=== PATIENT | male | born 1945 | race Caucasian/White ===

== ENCOUNTER 2019-07-26 13:43 | Outpatient (CLI) | payer MEDICARE, BC | END 2019-07-26 13:44 | disposition home or self-care (01) | LOC: RT 13:43 | PROVIDERS: ATTEND Internal Medicine Gastroenterology | DX: N18.6 End stage renal disease (principal); K58.9 Irritable bowel syndrome, unspecified | CPT/HCPCS: 93005 ==

== ENCOUNTER 2019-07-31 10:33 | Outpatient (CLI) | payer MEDICARE, BC | END 2019-07-31 10:34 | disposition critical access hospital (66) | LOC: EMS 10:33 | PROVIDERS: ATTEND Surgery | DX: R53.1 Weakness (principal); Z79.01 Long term (current) use of anticoagulants; W06.XXXA Fall from bed, initial encounter; Y92.032 Bedroom in apartment as the place of occurrence of the external cause; N19 Unspecified kidney failure; G62.9 Polyneuropathy, unspecified; R00.1 Bradycardia, unspecified | CPT/HCPCS: A0425; A0426; A0427 ==

== ENCOUNTER 2019-07-31 10:38 | Emergency (ER) | payer MEDICARE, BC ==
[2019-07-31] MEDS ORDERED: LACTATED RINGERS 1,000 ML IV STA (10:56)
[2019-07-31 11:28] LABS: BASOPHILS % (AUTO) 0.3 %; EOSINOPHILS % (AUTO) 1.3 %; HGB - HEMOGLOBIN 11.5 g/dL (14.0-18.0); LYMPHOCYTES # (AUTO) 1.2 10^3/uL (1.5-3.5); MEAN CORPUSCULAR HEMOGLOBIN 32.5 pg (27.0-31.0); MEAN CORPUSCULAR HGB CONC 32.9 g/dL (32.0-36.0); MEAN CORPUSCULAR VOLUME 98.9 fL (80.0-94.0); MEAN PLATELET VOLUME 12.2 fL (7.4-11.4); MONOCYTES # (AUTO) 0.3 10^3/uL (0.0-1.0); MONOCYTES % (AUTO) 8.9 %; NEUTROPHILS # (AUTO) 1.6 10^3/uL (1.5-6.6); NEUTROPHILS % (AUTO) 49.9 %; PLT - PLATELET COUNT 55 10^3/uL (130-450); RED BLOOD COUNT 3.54 10^6/uL (4.70-6.10); RED CELL DISTRIBUTION WIDTH 15.2 % (12.0-15.0); WHITE BLOOD COUNT 3.1 x10^3/uL (4.8-10.8)
[2019-07-31 11:32] LABS: PT - PROTHROMBIN TIME 83.1 secs (9.9-12.6)
[2019-07-31 11:41] LABS: INR 8.2 (0.8-1.2)
--- NOTE | 2019-07-31 11:55 | XRAY Report ---
Reason: chest pain Procedure Date: 07/31/2019 Accession Number: [id number] / [id number] Procedure: XR - Chest 1 View X-Ray CPT Code: 27107 Final Report FULL RESULT: EXAM: CHEST RADIOGRAPHY EXAM DATE: 07/31/2019 11:23 AM. CLINICAL HISTORY: Chest pain. COMPARISON: ABDOMEN ACUTE 08/29/2014 4:33 AM. TECHNIQUE: 1 view. FINDINGS: Lungs/Pleura: No focal opacities evident. No pleural effusion. No pneumothorax. Mediastinum: Top normal heart size. Other: None. IMPRESSION: Negative for active cardiopulmonary process. RADIA
[2019-07-31 11:57] LABS: ALBUMIN 3.4 g/dL (3.2-5.5); ALBUMIN/GLOBULIN RATIO 1.3 (1.0-2.2); ALKALINE PHOSPHATASE 39 IU/L (42-121); ALT ALANINE AMINOTRANSFERASE < 10 IU/L (10-60); AST ASPARTATE AMINOTRANSFERASE 14 IU/L (10-42); BUN - BLOOD UREA NITROGEN 48 mg/dL (6-20); CALCIUM 8.9 mg/dL (8.5-10.3); CARBON DIOXIDE - CO2 24 mmol/L (21-32); CHLORIDE 107 mmol/L (101-111); CK- CREATINE KINASE 133 IU/L (22-269); CREATININE 3.4 mg/dL (0.6-1.2); GFR - MDRD 18 (>89); GLUCOSE 79 mg/dL (70-100); LIPASE 43 U/L (22-51); MAGNESIUM 2.3 mg/dL (1.7-2.8); SODIUM 140 mmol/L (135-145)
--- NOTE | 2019-07-31 12:01 | XRAY Report ---
Reason: pain Procedure Date: 07/31/2019 Accession Number: [id number] / [id number] Procedure: XR - Knee 4 View RT CPT Code: Final Report FULL RESULT: EXAM: RIGHT KNEE RADIOGRAPHY EXAM DATE: 07/31/2019 11:26 AM. CLINICAL HISTORY: Pain. Syncopal episode with right-sided pain. COMPARISON: FEMUR 2V RT 07/31/2019 10:53 AM. TECHNIQUE: 2 views. FINDINGS: Bones and Joints: No fractures or bone lesion. A 2 component right knee medial hemiarthroplasty has been performed. There is expected alignment of components. No unexpected periprosthetic lucency or other evidence of loosening. Osseous body 9 mm medial joint space. Osseous body or bodies anterior joint space and infrapatellar fat pad calcification. Negative for suprapatellar recess joint fluid. Soft Tissues: No knee effusion. No soft tissue swelling. IMPRESSION: 1. Negative for fracture. 2. Negative for medial right knee hemiarthroplasty loosening. 3. Osseous body 9 mm medial tibiofemoral compartment lateral aspect. 4. Osseous body 5 mm anterior joint space lateral view with infrapatellar fat pad calcification. RADIA
--- NOTE | 2019-07-31 12:05 | XRAY Report ---
Reason: pain Procedure Date: 07/31/2019 Accession Number: [id number] / [id number] Procedure: XR - Femur 2V RT CPT Code: Final Report FULL RESULT: EXAM: RIGHT FEMUR RADIOGRAPHY EXAM DATE: 07/31/2019 11:29 AM. CLINICAL HISTORY: Pain. Syncopal episode with right head and right-sided injury. COMPARISON: KNEE 4 VIEW RT 07/31/2019 10:45 AM. TECHNIQUE: 2 views. FINDINGS: Bones: Osseous fragment 2.6 cm adjacent to the right ischial tuberosity. Joints: The visualized hip and knee joints are normal. No effusions. Soft Tissues: Normal. No soft tissue swelling. IMPRESSION: 1. Osseous fragment 2.6 cm adjacent to the right ischial tuberosity suggestive of hamstring avulsion. 2. Negative for right femur fracture. RADIA
[2019-07-31 12:48] LABS: BILIRUBIN,URINE NEGATIVE (NEGATIVE); GLUCOSE, URINE (UA) NEGATIVE (NEGATIVE); KETONES,URINE (UA) NEGATIVE (NEGATIVE); LEUKOCYTE ESTERASE, URINE NEGATIVE (NEGATIVE); NITRITE,URINE NEGATIVE (NEGATIVE); OCCULT BLOOD,URINE TRACE-INTA (NEGATIVE); PROTEIN,URINE NEGATIVE (NEGATIVE); UROBILINOGEN,URINE 0.2 (NORMAL) E.U./dL (NORMAL)
[2019-07-31 12:49] LABS: CLARITY,URINE CLEAR (CLEAR)
--- NOTE | 2019-07-31 13:00 | ED Physician Documentation ---
History of Present Illness - Stated complaint Stated Complaint: WEAKNESS - Chief complaint Chief Complaint: Neuro - History obtained from History obtained from: Patient, Family - History of Present Illness Timing: Today - Additonal information Additional information: This is a 73-year-old man who presents by ambulance with complaints that he has had been very weak over the past few days. His helps to provide the history that last night he got up around 3 AM and he fell to the ground he was not able to get up and he did not want a disturb his so he waited until she found him this morning around 7 AM. She was able to get him up off the floor and into bed but then she noticed that his left arm was not working properly. She thought that he might have a little light right facial droop. He thinks he may have hit his head but he did not pass out and he denies being on any blood thinner. He does report a history of stage IV renal disease but has not started dialysis and he has seen a student life vice president twice in the past month or so trying to clear get clearance for kidney transplant. He was on rate control medications for his A. fib but stopped those sometime ago. Patient himself denies any pain anywhere. The says that his weakness has gotten so progressively severe over the past 3 days that he cannot get up and use his walker he is having to get around in a wheelchair and he has fallen each night the past 3 nights. He did eat and drink last night. 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 No fever. Review of Systems Constitutional: denies: Fever Eyes: denies: Decreased vision Ears: reports: Loss of hearing (Wears hearing aids) Nose: denies: Rhinorrhea / runny nose, Congestion Throat: denies: Sore throat Cardiac: reports: Pedal edema. denies: Palpitations Respiratory: denies: Dyspnea, Cough GI: denies: Nausea, Vomiting, Diarrhea : reports: Frequency. denies: Dysuria Skin: reports: Other (There is a wound on the right anterior leg from prior previous fall.) Musculoskeletal: reports: Extremity swelling, Other (Status post right total knee replacement). denies: Joint pain Neurologic: reports: Generalized weakness, Near syncope, Head injury. denies: Numbness, Syncope, Seizure, Confused, Altered mental status, Headache, LOC Endocrine: reports: Polyuria Immunocompromised: denies: Chemotherapy PD PAST MEDICAL HISTORY - Past Medical History Cardiovascular: Hypertension, Arrhythmia Respiratory: Sleep apnea, CPAP use Neuro: Parkinson's Endocrine/Autoimmune: None GI: None : None HEENT: None Psych: Bipolar disorder Musculoskeletal: Chronic back pain Derm: None - Past Surgical History Past Surgical History: Yes Ortho: Rotator cuff repair Cardiovascular: CABG - Present Medications Home Medications: Ambulatory Orders Medication Instructions Recorded Confirmed risperiDONE [RisperDAL] 1 tab ORAL TID 03/26/15 07/31/19 Atorvastatin Calcium 20 mg PO DAILY 07/31/19 07/31/19 Carbidopa/Levodopa 2 tab ORAL TID 07/31/19 07/31/19 [Carbidopa-Levodopa 25-100 Tab] Divalproex Sodium 500 mg PO TID 07/31/19 07/31/19 Divalproex Sodium [Depakote] 1,500 mg PO DAILY 07/31/19 07/31/19 LORazepam [Ativan] 1 tab ORAL TID 07/31/19 07/31/19 Levothyroxine Sodium [Synthroid] 50 mcg PO DAILY 07/31/19 07/31/19 Tamsulosin [Flomax] 0.4 mg PO DAILY 07/31/19 07/31/19 Warfarin [Coumadin] 2.5 mg PO 1-2XD 07/31/19 07/31/19 buPROPion HCL [Bupropion HCl] 1 tab ORAL DAILY 07/31/19 07/31/19 calcitrioL [Calcitriol] 1 tab ORAL DAILY 07/31/19 07/31/19 - Allergies Allergies/Adverse Reactions: Allergies Allergy/AdvReac Type Severity Reaction Status Date / Time No Known Drug Allergies Allergy Verified 02/11/15 07:35 - Social History Does the pt smoke?: No Smoking Status: Never smoker Does the pt drink ETOH?: Yes - Immunizations Immunizations are current?: Yes PD ED PE NORMAL - Vitals Vital signs reviewed: Yes - General General: Alert and oriented X 3, No acute distress, Well developed/nourished - HEENT HEENT: Atraumatic, PERRL, EOMI, Moist mucous membranes, Pharynx benign - Neck Neck: No adenopathy, No bruit - Cardiac Cardiac: No murmur, No gallop, No rub, Strong equal pulses, Other (Bradycardic) - Respiratory Respiratory: No respiratory distress, Clear bilaterally - Abdomen Abdomen: Normal bowel sounds, Soft, Non tender, Non distended, No organomegaly - Derm Derm: Warm and dry, Other (Patient does look a little pale. There is a right he red discoloration to his lower extremities below the knees bilaterally. There is an open small laceration of less than a centimeter on the the not fresh. Well-healed scar over the right knee. There is bruising over the right patella.) - Extremities Extremities: No deformity, Other (Tender to palpate on the right patella. Ankle and hip joints appear without pain. 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 No: Alert and oriented X 3 (Oriented to person and place but did not know the day) - Psych Psych: Normal mood, Normal affect Results - Vitals Vitals: Vital Signs - 24 hr 07/31/19 07/31/19 07/31/19 10:45 10:53 12:21 Temperature 37.0 C Heart Rate 70 51 L Respiratory 16 15 Rate Blood Pressure 125/83 H 119/73 O2 Saturation 98 100 07/31/19 07/31/19 07/31/19 13:05 17:47 18:49 Temperature 36.6 C Heart Rate 65 63 56 L Respiratory 15 15 14 Rate Blood Pressure 127/78 134/73 H 137/72 H O2 Saturation 97 97 97 Oxygen O2 Source Room air - EKG (time done) 1122 Rate: Rate (enter#) (50) Rhythm: Atrial fibrillation Intervals: Wide QRS Ischemia: Non specific changes Compare to prior EKG: Old EKG unavailable - Labs Labs: Laboratory Tests 07/31/19 07/31/19 07/31/19 10:49 10:49 10:49 WBC 3.1 L RBC 3.54 L Hgb 11.5 L Hct 35.0 L MCV 98.9 H MCH 32.5 H MCHC 32.9 RDW 15.2 H Plt Count 55 L MPV 12.2 H Neut # (Auto) 1.6 Lymph # (Auto) 1.2 L [place] # (Auto) 0.3 Eos # (Auto) 0.0 Baso # (Auto) 0.0 Absolute Nucleated RBC 0.00 Nucleated RBC % 0.0 PT 83.1 H INR 8.2 H* Sodium 140 Potassium 4.3 Chloride 107 Carbon Dioxide 24 Anion Gap 9.0 BUN 48 H Creatinine 3.4 H Estimated GFR (MDRD) 18 L Glucose 79 Lactic Acid Calcium 8.9 Magnesium 2.3 Total Bilirubin 1.0 AST 14 ALT < 10 L Alkaline Phosphatase 39 L Total Creatine Kinase 133 Troponin I High Sens Total Protein 6.0 L Albumin 3.4 Globulin 2.6 Albumin/Globulin Ratio 1.3 Lipase 43 Urine Color Urine Clarity Urine pH Ur Specific [place] Urine Protein Urine Glucose (UA) Urine Ketones Urine Occult Blood Urine Nitrite Urine Bilirubin Urine Urobilinogen Ur Leukocyte Esterase Ur Microscopic Review Urine Culture Comments Last Dose Date Last Dose Time Valproic Acid [place] 07/31/19 07/31/19 07/31/19 10:49 11:36 12:34 WBC RBC Hgb Hct MCV MCH MCHC RDW Plt Count MPV Neut # (Auto) Lymph # (Auto) [place] # (Auto) Eos # (Auto) Baso # (Auto) Absolute Nucleated RBC Nucleated RBC % PT INR Sodium Potassium Chloride Carbon Dioxide Anion Gap BUN Creatinine Estimated GFR (MDRD) Glucose Lactic Acid 0.9 Calcium Magnesium Total Bilirubin AST ALT Alkaline Phosphatase Total Creatine Kinase Troponin I High Sens 15.9 Total Protein Albumin Globulin Albumin/Globulin Ratio Lipase Urine Color YELLOW Urine Clarity CLEAR Urine pH 6.0 Ur Specific [place] <=1.005 Urine Protein NEGATIVE Urine Glucose (UA) NEGATIVE Urine Ketones NEGATIVE Urine Occult Blood TRACE-INTA Urine Nitrite NEGATIVE Urine Bilirubin NEGATIVE Urine Urobilinogen 0.2 (NORMAL) Ur Leukocyte Esterase NEGATIVE Ur Microscopic Review NOT INDICATED Urine Culture Comments NOT INDICATED Last Dose Date Last Dose Time Valproic Acid [place] 07/31/19 07/31/19 17:24 17:24 WBC RBC Hgb Hct MCV MCH MCHC RDW Plt Count MPV Neut # (Auto) Lymph # (Auto) [place] # (Auto) Eos # (Auto) Baso # (Auto) Absolute Nucleated RBC Nucleated RBC % PT INR Sodium Potassium Chloride Carbon Dioxide Anion Gap BUN Creatinine Estimated GFR (MDRD) Glucose Lactic Acid Calcium Magnesium Total Bilirubin AST ALT Alkaline Phosphatase Total Creatine Kinase Troponin I High Sens Total Protein Albumin Globulin Albumin/Globulin Ratio Lipase Urine Color Urine Clarity Urine pH Ur Specific [place] Urine Protein Urine Glucose (UA) Urine Ketones Urine Occult Blood Urine Nitrite Urine Bilirubin Urine Urobilinogen Ur Leukocyte Esterase Ur Microscopic Review Urine Culture Comments Last Dose Date UNKNOWN UNKNOWN Last Dose Time UNKNOWN UNKNOWN Valproic Acid < 10.0 [place] < 0.05 - Rads (name of study) CXR Radiology: See rad report (Neg acute) CT head Radiology: See rad report (Neg hemorrhage) PD MEDICAL DECISION MAKING - ED course Complexity details: reviewed results, re-evaluated patient, d/w patient, d/w family ED course: Patient's BUN and creatinine are elevated but he has normal sodium and potassium. White blood cell counts low at 3.1 hemoglobin slightly low his platelet counts 55. His INR was 8.2. Lactic acid was normal and troponin was normal. His EKG did not have acute ischemic changes. Chest x-ray was clear and urinalysis was negative. CT of the head was negative. Had a long course here in the emergency department trying to figure out the best disposition. I originally spoke With our hospitalist who requested that I discussed with cardiology because of the bradycardia and falls with questionable syncopal episodes.He did not feel that this patient would be a candidate at this point for a pacemaker Spoke with Dr. Nunez and. Then is began discussing with the family she noted that he has a history of some sort of polyneuropathy and given the proximal muscle weakness I became more concerned that he does need evaluation by neurology which we do not have the past that he did do here at [facility] and probably needs an MRI scan. I spoke with the hospitalist at [facility] and they did agree to accept the patient in transfer. She also had access to old labs as that is lab values are essentially stable from prior. She was a little concerned that if he needed an EMG they would have to transfer him from [facility] to [facility] so I did call and speak with the neurologist, Dr Cottrell, at [facility] he did not feel that that they would be able to do an inpatient EMG anyway and that the referral to [facility] was probably appropriate at this time. When I went back into discuss with the family about the acceptance at [facility] patient was noted not to be moving the left arm again. He had this proximal weakness where he could not hold the left arm up at the shoulder or flex at the biceps but could move his hand and evs attendant my fingers. He was a still able to move the right arm. I updated them with the plan for transfer to [facility] and they are both in agreement. Of also added a Depakote level to make sure that he is not toxic on the Depakote. Will order his appropriate nightly meds. Departure - Departure Disposition: 02 Transfer Acute Care Hosp Clinical Impression: Weakness, Bradycardia Renal failure Qualifiers: Renal failure chronicity: chronic Chronic kidney disease stage: unspecified stage Qualified Code(s): N18.9 - Chronic kidney disease, unspecified Atrial fibrillation Qualifiers: Atrial fibrillation type: unspecified Qualified Code(s): I48.91 - Unspecified atrial fibrillation Condition: Fair Discharge Date/Time: 07/31/19 19:23
--- NOTE | 2019-07-31 14:50 | CT Report ---
Reason: syncope Procedure Date: 07/31/2019 Accession Number: [id number] / [id number] Procedure: CT - HEAD WO CPT Code: Final Report FULL RESULT: EXAM: CT HEAD EXAM DATE: 07/31/2019 11:48 AM. CLINICAL HISTORY: Syncope COMPARISON: None. TECHNIQUE: Multiaxial CT images were obtained from the foramen magnum to the vertex. Reformats: Sagittal and coronal. IV contrast: None. In accordance with CT protocol optimization, one or more of the following dose reduction techniques were utilized for this exam: automated exposure control, adjustment of mA and/or KV based on patient size, or use of iterative reconstructive technique. FINDINGS: Parenchyma: No intraparenchymal hemorrhage. No evidence of mass, midline shift, or CT findings of infarction. Dhillon-white differentiation is distinct. Extraaxial Spaces: There is generalized volume loss. No subdural or epidural collections identified. Ventricles: Normal in size and position. Sinuses and Orbits: Imaged paranasal sinuses, orbits, and mastoids show no significant abnormality. Bones: No evidence of fracture or calvarial defect. Other: None. IMPRESSION: No acute intracranial CT abnormality. RADIA
[2019-07-31] MEDS ORDERED: FOLIC ACID INJ 1 MG in SODIUM CHLORIDE 0.9% 1,000 ML IV STA ×2 (15:13→15:33)
[2019-07-31] MEDS ORDERED: THIAMINE INJ 100 MG in SODIUM CHLORIDE 0.9% 50 ML IV STA (15:13)
[2019-07-31] MEDS ORDERED: TAMSULOSIN 0.4 MG CAPSULE PO STA (18:38)
[2019-07-31 18:50] VITALS: BP 137/72
[2019-07-31 18:58] LABS: LITHIUM < 0.05 mmol/L; VALPROIC ACID (DEPAKOTE) < 10.0 ug/mL
[2019-07-31] MEDS ORDERED: CARBIDOPA/LEVODOPA 25 MG/100 MG TABLET PO SCH (19:00)
[2019-07-31] MEDS ORDERED: LEVOTHYROXINE 25 MCG TABLET PO SCH (19:00)
[2019-07-31] MEDS ORDERED: CARBIDOPA/LEVODOPA 25 MG/100 MG TABLET ONE (19:09)
== END 2019-07-31 19:23 | disposition short-term general hospital (02) ==
LOC: EDUNIT# → ED 10:38
DX: R53.1 Weakness (principal); R29.898 Other symptoms and signs involving the musculoskeletal system; R00.1 Bradycardia, unspecified; I48.91 Unspecified atrial fibrillation; S80.01XA Contusion of right knee, initial encounter; W18.30XA Fall on same level, unspecified, initial encounter; Z91.81 History of falling; Y92.009 Unspecified place in unspecified non-institutional (private) residence as the place of occurrence of the external cause; I12.9 Hypertensive chronic kidney disease with stage 1 through stage 4 chronic kidney disease, or unspecified chronic kidney disease; N18.4 Chronic kidney disease, stage 4 (severe); E23.2 Diabetes insipidus; G20 Parkinson's disease; Z96.651 Presence of right artificial knee joint
CPT/HCPCS: 36415; 70450; 71045; 73552; 73564; 80053; 80164; 80178; 81003; 82550; 83605; 83690; 83735; 84484; 85025; 85610; 87040; 93005; 96365; 96368; 99285; A9270; J3411; J7040; J7120; 81001; 84100; 87086

== ENCOUNTER 2019-07-31 19:25 | Outpatient (CLI) | payer MEDICARE, BC | END 2019-07-31 19:26 | disposition short-term general hospital (02) | LOC: EMS 19:25 | PROVIDERS: ATTEND Surgery | DX: N19 Unspecified kidney failure (principal); G62.9 Polyneuropathy, unspecified; R00.1 Bradycardia, unspecified ==

== ENCOUNTER 2019-08-22 08:00 | Outpatient (CLI) | payer MEDICARE, BC ==
[2019-08-22 06:17] LABS: BASOPHILS % (AUTO) 0.3 %; EOSINOPHILS # (AUTO) 0.1 10^3/uL (0.0-0.7); EOSINOPHILS % (AUTO) 0.9 %; LYMPHOCYTES # (AUTO) 0.9 10^3/uL (1.5-3.5); LYMPHOCYTES % (AUTO) 12.3 %; MEAN CORPUSCULAR HEMOGLOBIN 32.4 pg (27.0-31.0); MEAN CORPUSCULAR HGB CONC 32.3 g/dL (32.0-36.0); MEAN CORPUSCULAR VOLUME 100.6 fL (80.0-94.0); MEAN PLATELET VOLUME 10.4 fL (7.4-11.4); MONOCYTES # (AUTO) 0.4 10^3/uL (0.0-1.0); MONOCYTES % (AUTO) 5.7 %; NEUTROPHILS # (AUTO) 6.2 10^3/uL (1.5-6.6); NEUTROPHILS % (AUTO) 80.4 %; PLT - PLATELET COUNT 113 10^3/uL (130-450); RED BLOOD COUNT 3.39 10^6/uL (4.70-6.10); RED CELL DISTRIBUTION WIDTH 15.6 % (12.0-15.0); WHITE BLOOD COUNT 7.7 x10^3/uL (4.8-10.8)
[2019-08-22 06:23] LABS: CALCIUM 8.9 mg/dL (8.5-10.3); CREATININE 2.8 mg/dL (0.6-1.2)
[2019-08-22 06:31] LABS: INR 1.4 (0.8-1.2); PT - PROTHROMBIN TIME 15.6 secs (9.9-12.6)
== END 2019-08-22 23:59 | disposition home or self-care (01) ==
LOC: LAB.R 08:00
DX: N18.4 Chronic kidney disease, stage 4 (severe) (principal); R53.1 Weakness; E23.2 Diabetes insipidus; D69.6 Thrombocytopenia, unspecified
CPT/HCPCS: 80048; 85025; 85610

== ENCOUNTER 2019-08-22 14:29 | Outpatient (CLI) | payer MEDICARE, BC | END 2019-08-22 14:30 | disposition critical access hospital (66) | LOC: EMS 14:29 | PROVIDERS: ATTEND Surgery | DX: R47.9 Unspecified speech disturbances (principal); R53.1 Weakness | CPT/HCPCS: A0425; A0429 ==

== ENCOUNTER 2019-08-22 14:32 | Inpatient (IN) | payer MEDICARE, BC ==
[2019-08-22] MEDS ORDERED: SODIUM CHLORIDE 0.9% 1,000 ML IV ONE ×2 (14:48)
--- NOTE | 2019-08-22 15:10 | ED Physician Documentation ---
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 They state that this morning at approximately 11 AM they found him to have garbled speech and a left-sided facial droop. He apparently was last seen normal at approximately 7:30 in the morning. He is on warfarin. The nursing notes also indicate that he felt cold at that time. They did not call an ambulance at that time as the nursing notes state that his vital signs were stable so there was nothing that the ER could do for this. Nothing makes it better or worse. He states that he feels tired. Review of Systems Ten Systems: 10 systems reviewed and negative Constitutional: reports: Fever Ears: denies: Ear pain Nose: denies: Rhinorrhea / runny nose, Congestion Cardiac: denies: Chest pain / pressure Respiratory: denies: Cough GI: denies: Vomiting, Diarrhea : denies: Dysuria Skin: denies: Rash Musculoskeletal: denies: Neck pain, Back pain PD PAST MEDICAL HISTORY - Past Medical History Cardiovascular: Hypertension, Arrhythmia Respiratory: Sleep apnea, CPAP use Neuro: Parkinson's Endocrine/Autoimmune: None GI: None : None HEENT: None Psych: Bipolar disorder Musculoskeletal: Chronic back pain Derm: None - Past Surgical History Past Surgical History: Yes Ortho: Rotator cuff repair Cardiovascular: CABG - Present Medications Home Medications: Ambulatory Orders Medication Instructions Recorded Confirmed Atorvastatin Calcium 20 mg PO DAILY 07/31/19 08/22/19 Divalproex Sodium 500 mg PO TID 07/31/19 08/22/19 Levothyroxine Sodium [Synthroid] 50 mcg PO DAILY 07/31/19 08/22/19 Tamsulosin [Flomax] 0.4 mg PO DAILY 07/31/19 08/22/19 Warfarin [Coumadin] 2.5 mg PO 1-2XD 07/31/19 07/31/19 buPROPion HCL [Bupropion HCl] 75 mg PO DAILY 07/31/19 08/22/19 calcitrioL [Calcitriol] 0.25 mcg PO Q2D 07/31/19 08/22/19 Carbidopa/Levodopa 25/100 [Sinemet 1 each PO TID 08/22/19 08/22/19 25 mg/100 mg] Latanoprost 0.005% Ophth Drops 1 drops EACHEYE QPM 08/22/19 08/22/19 [Xalatan Ophth Drops] amLODIPine [Norvasc] 5 mg PO DAILY 08/22/19 08/22/19 - Allergies Allergies/Adverse Reactions: Allergies Allergy/AdvReac Type Severity Reaction Status Date / Time No Known Drug Allergies Allergy Verified 08/22/19 15:00 - Social History Does the pt smoke?: No Smoking Status: Never smoker Does the pt drink ETOH?: Yes - Immunizations Immunizations are current?: Yes PD ED PE NORMAL - Vitals Vital signs reviewed: Yes - General General: Alert and oriented X 3, No acute distress, Well developed/nourished, Other (mild tremor) - HEENT HEENT: PERRL, Moist mucous membranes - Neck Neck: Supple, no meningeal sign - Cardiac Cardiac: Other (irregular) - Respiratory Respiratory: No respiratory distress, Clear bilaterally - Abdomen Abdomen: Soft, Non tender, Non distended - Derm Derm: Warm and dry, No rash - Extremities Extremities: No edema - Neuro 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, 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, No sensory deficit, Normal speech, Other (mild L sided weakness from prior CVA) Eye Opening: Spontaneous Motor: Obeys Commands Verbal: Oriented GCS Score: 15 - Psych Psych: Normal mood, Normal affect Results - Vitals Vitals: Vital Signs - 24 hr 08/22/19 08/22/19 08/22/19 14:45 15:20 15:46 Temperature 38.5 C H 38.3 C H Heart Rate 126 H 83 80 Respiratory 23 22 22 Rate Blood Pressure 108/73 114/105 H O2 Saturation 98 98 100 Oxygen O2 Source Room air - EKG (time done) 1453 Rate: Rate (enter#) (71) Rhythm: Atrial fibrillation, Other (PVCs) [place]: Normal Intervals: Wide QRS QRS: Normal Ischemia: Non specific changes - Labs Labs: Laboratory Tests 08/22/19 08/22/19 08/22/19 15:40 15:40 15:40 WBC 10.3 RBC 3.10 L Hgb 10.1 L Hct 31.4 L MCV 101.3 H MCH 32.6 H MCHC 32.2 RDW 15.5 H Plt Count 96 L MPV 9.9 Neut # (Auto) 8.9 H Lymph # (Auto) 0.6 L [place] # (Auto) 0.7 Eos # (Auto) 0.0 Baso # (Auto) 0.0 Absolute Nucleated RBC 0.00 Nucleated RBC % 0.0 PT INR Sodium 136 Potassium 4.2 Chloride 103 Carbon Dioxide 24 Anion Gap 9.0 BUN 50 H Creatinine 2.9 H Estimated GFR (MDRD) 21 L Glucose 81 Lactic Acid 1.0 Calcium 8.7 Total Bilirubin 1.0 AST 11 ALT < 10 L Alkaline Phosphatase 45 Total Protein 6.1 L Albumin 2.8 L Globulin 3.3 Albumin/Globulin Ratio 0.8 L Lipase 38 Urine Color Urine Clarity Urine pH Ur Specific [place] Urine Protein Urine Glucose (UA) Urine Ketones Urine Occult Blood Urine Nitrite Urine Bilirubin Urine Urobilinogen Ur Leukocyte Esterase Urine RBC Urine WBC Urine WBC Clumps Ur Squamous Epith Cells Urine Bacteria Ur Microscopic Review Urine Culture Comments 08/22/19 08/22/19 15:40 16:00 WBC RBC Hgb Hct MCV MCH MCHC RDW Plt Count MPV Neut # (Auto) Lymph # (Auto) [place] # (Auto) Eos # (Auto) Baso # (Auto) Absolute Nucleated RBC Nucleated RBC % PT 16.2 H INR 1.5 H Sodium Potassium Chloride Carbon Dioxide Anion Gap BUN Creatinine Estimated GFR (MDRD) Glucose Lactic Acid Calcium Total Bilirubin AST ALT Alkaline Phosphatase Total Protein Albumin Globulin Albumin/Globulin Ratio Lipase Urine Color YELLOW Urine Clarity HAZY Urine pH 6.5 Ur Specific [place] <=1.005 Urine Protein NEGATIVE Urine Glucose (UA) NEGATIVE Urine Ketones NEGATIVE Urine Occult Blood SMALL H Urine Nitrite NEGATIVE Urine Bilirubin NEGATIVE Urine Urobilinogen 0.2 (NORMAL) Ur Leukocyte Esterase MODERATE H Urine RBC 0-5 Urine WBC >25 H Urine WBC Clumps PRESENT Ur Squamous Epith Cells RARE Squamous Urine Bacteria Rare Ur Microscopic Review INDICATED Urine Culture Comments INDICATED - Rads (name of study) head CT Radiology: Prelim report reviewed, EMP read contemporaneously, See rad report (N o acute disease or interval change. ) cxr Radiology: Prelim report reviewed, EMP read contemporaneously, See rad report (Negative for an acute cardiopulmonary abnormality. ) PD MEDICAL DECISION MAKING - ED course Complexity details: reviewed results, re-evaluated patient, considered differential, d/w patient, d/w family, d/w strategic planning consultant ED course: Patient with what sounds like confusion at [facility] today. Likely related to his fever and UTI rather than an acute stroke. Blood cultures drawn. IV fluids given. Heart rate decreased. Will place on IV antibiotics. Discussed the case with the hospitalist who accepts. This document was made in part using voice recognition software. While efforts are made to proofread this document, sound alike and grammatical errors may occur. Departure - Departure Disposition: 66 [facility] DC/Xfer Clinical Impression: TIA (transient ischemic attack) Fever Qualifiers: Fever type: unspecified Qualified Code(s): R50.9 - Fever, unspecified Altered mental status Qualifiers: Altered mental status type: unspecified Qualified Code(s): R41.82 - Altered mental status, unspecified UTI (urinary tract infection) Qualifiers: Urinary tract infection type: acute cystitis Hematuria presence: without hematuria Qualified Code(s): N30.00 - Acute cystitis without hematuria Condition: Stable Discharge Date/Time: 08/22/19 18:17
--- NOTE | 2019-08-22 15:24 | CT Report ---
Reason: ALOC Procedure Date: 08/22/2019 Accession Number: [id number] / [id number] Procedure: CT - HEAD WO CPT Code: Final Report FULL RESULT: EXAM: CT HEAD EXAM DATE: 08/22/2019 02:51 PM. CLINICAL HISTORY: Altered level of consciousness. COMPARISON: HEAD W/O 07/31/2019 11:47 AM. TECHNIQUE: Multiaxial CT images were obtained from the foramen magnum to the vertex. Reformats: Sagittal and coronal. IV contrast: None. In accordance with CT protocol optimization, one or more of the following dose reduction techniques were utilized for this exam: automated exposure control, adjustment of mA and/or KV based on patient size, or use of iterative reconstructive technique. FINDINGS: Parenchyma: No intraparenchymal hemorrhage. No evidence of mass, midline shift, or CT findings of infarction. Dhillon-white differentiation is distinct. Moderate cerebral atrophy present. Mild periventricular white matter disease unchanged. Extraaxial Spaces: Normal for age. No subdural or epidural collections identified. Ventricles: Normal in size and position. Sinuses and Orbits: No sinus opacities or fluid levels evident. Bones: No evidence of fracture or calvarial defect. Other: None. IMPRESSION: No acute disease or interval change. RADIA
[2019-08-22 15:45] LABS: BASOPHILS % (AUTO) 0.2 %; EOSINOPHILS % (AUTO) 0.1 %; HGB - HEMOGLOBIN 10.1 g/dL (14.0-18.0); LYMPHOCYTES # (AUTO) 0.6 10^3/uL (1.5-3.5); LYMPHOCYTES % (AUTO) 6.1 %; MEAN CORPUSCULAR HEMOGLOBIN 32.6 pg (27.0-31.0); MEAN CORPUSCULAR HGB CONC 32.2 g/dL (32.0-36.0); MEAN CORPUSCULAR VOLUME 101.3 fL (80.0-94.0); MEAN PLATELET VOLUME 9.9 fL (7.4-11.4); MONOCYTES # (AUTO) 0.7 10^3/uL (0.0-1.0); MONOCYTES % (AUTO) 6.5 %; NEUTROPHILS # (AUTO) 8.9 10^3/uL (1.5-6.6); NEUTROPHILS % (AUTO) 86.3 %; PLT - PLATELET COUNT 96 10^3/uL (130-450); RED CELL DISTRIBUTION WIDTH 15.5 % (12.0-15.0); WHITE BLOOD COUNT 10.3 x10^3/uL (4.8-10.8)
--- NOTE | 2019-08-22 15:45 | XRAY Report ---
Reason: fever Procedure Date: 08/22/2019 Accession Number: [id number] / [id number] Procedure: XR - Chest 1 View X-Ray CPT Code: 45647 Final Report FULL RESULT: EXAM: CHEST RADIOGRAPHY EXAM DATE: 08/22/2019 03:28 PM. CLINICAL HISTORY: Fever. COMPARISON: CHEST 1 VIEW 07/31/2019 10:43 AM. TECHNIQUE: 1 view. FINDINGS: Lungs/Pleura: No focal pneumonia or airspace disease. Lung volumes are stable. Negative for pneumothorax. Mediastinum: Heart size is normal. The trachea is midline. Other: None. IMPRESSION: Negative for an acute cardiopulmonary abnormality. RADIA
[2019-08-22 15:59] LABS: INR 1.5 (0.8-1.2); PT - PROTHROMBIN TIME 16.2 secs (9.9-12.6)
[2019-08-22 16:01] LABS: ALBUMIN 2.8 g/dL (3.2-5.5); ALBUMIN/GLOBULIN RATIO 0.8 (1.0-2.2); ALKALINE PHOSPHATASE 45 IU/L (42-121); ALT ALANINE AMINOTRANSFERASE < 10 IU/L (10-60); AST ASPARTATE AMINOTRANSFERASE 11 IU/L (10-42); BUN - BLOOD UREA NITROGEN 50 mg/dL (6-20); CALCIUM 8.7 mg/dL (8.5-10.3); CARBON DIOXIDE - CO2 24 mmol/L (21-32); CHLORIDE 103 mmol/L (101-111); CREATININE 2.9 mg/dL (0.6-1.2); GFR - MDRD 21 (>89); GLUCOSE 81 mg/dL (70-100); LIPASE 38 U/L (22-51); SODIUM 136 mmol/L (135-145); TOTAL PROTEIN 6.1 g/dL (6.7-8.2)
[2019-08-22 16:17] LABS: BILIRUBIN,URINE NEGATIVE (NEGATIVE); GLUCOSE, URINE (UA) NEGATIVE (NEGATIVE); KETONES,URINE (UA) NEGATIVE (NEGATIVE); LEUKOCYTE ESTERASE, URINE MODERATE (NEGATIVE); NITRITE,URINE NEGATIVE (NEGATIVE); OCCULT BLOOD,URINE SMALL (NEGATIVE); PH,URINE 6.5 PH (5.0-7.5); PROTEIN,URINE NEGATIVE (NEGATIVE); UROBILINOGEN,URINE 0.2 (NORMAL) E.U./dL (NORMAL)
[2019-08-22 16:18] LABS: CLARITY,URINE HAZY (CLEAR)
[2019-08-22] MEDS ORDERED: cefTRIAXone 1 GM VIAL IVP STA (16:30)
[2019-08-22 16:38] LABS: BACTERIA,URINE Rare /HPF (None Seen); RBC,URINE 0-5 /HPF (0-5); SQUAMOUS EPITHELIAL CELL,UR RARE Squamous (<= Few); WBC CLUMPS,URINE PRESENT
[2019-08-22] MEDS ORDERED: ACETAMINOPHEN 325 MG TABLET PO PRN (17:08)
[2019-08-22] MEDS ORDERED: ONDANSETRON 4 MG/2 ML VIAL IVP PRN (17:08)
[2019-08-22] MEDS ORDERED: SODIUM CHLORIDE FLUSH 0.9% 10 ML SYRINGE IVP PRN (17:08)
--- NOTE | 2019-08-22 17:51 | HISTORY & PHYSICAL EXAMINATION ---
Chief Complaint - Chief Complaint Chief Complaint: left side weakness History of Present Illness - Admitted From Admitted From:: ER - History Obtained From History obtained from: pt's Exam Limitations: pt's confused - History of Present Illness HPI Comment/Other: Mr. Cordero is a 73-year-old male with a PMH significant for s/p recent stroke, HTN, arrhythmia, sleep apnea with CPAP use, Parkinson's, bipolar disorder, chronic back pain, hypothyroidism, CKD, afib on Coumadin, who present ER for left side weakness. pt is confused and can not provide medical history. pt's is at the bedside to provide some medical history. She report pt had both hemorrhage and clots stroke at [place] about two weeks ago then pt was d/c to [facility] for rehab. she report pt's left side weakness appear again on today morning when she saw pt. She report pt had hx of left side weakness from last stroke but became better after d/c from [place]. Per ER's report, at this morning at approximately 11 [address] [facility] found pt to have garbled speech and a left-sided facial droop. Pt took Coumadin at [facility]. Per ER report, the nursing notes in [facility] also indicate that he felt cold at that time, and [facility] did not call an ambulance at that time because the nursing notes state that pt's vital signs were stable, so there was nothing that the ER could do for this. In ER pt was found to have fever at 39.5, UA analysis indicate UTI. CXR and CT of head on today reveals unremarkable. Route lab test shows pt's creatinine is 2.9, INR is 1.5 Discussed with pt's about the care plan and goal of care. pt's recognized pt has severe medical conditions which could become more worsening. she state if any happens, [facility] call her DIOR. she state pt's code status is DNR/DNI. History - Past Medical History Cardiovascular: reports: Hypertension, Arrhythmia Respiratory: reports: Sleep apnea, CPAP use Neuro: reports: Parkinson's Endocrine/Autoimmune: reports: None GI: reports: None : reports: None HEENT: reports: None Psych: reports: Bipolar disorder Musculoskeletal: reports: Chronic back pain Derm: reports: None MRSA Hx?: No - Past Surgical History Ortho: reports: Rotator cuff repair Cardiovascular: reports: CABG - Family & Social History Family History: Mother: CVA/TIA, Father: Cancer Family History Comment/Other: pt's report pt's father from lung cancer at age of 90, her mother from stroke. pt has 10 sibles, all are health now. Living arrangement: At home Living Situation: With spouse/s.o. Social History Notes: pt's report pt had no hx of smoking, alcohol and drug isssue. They has three children together. They is living [facility]. - POLST POLST Status: DNR Meds/Allgy - Home Medications Home Medications: Ambulatory Orders Medication Instructions Recorded Confirmed Atorvastatin Calcium 20 mg PO DAILY 07/31/19 08/22/19 Divalproex Sodium 500 mg PO TID 07/31/19 08/22/19 Levothyroxine Sodium [Synthroid] 50 mcg PO DAILY 07/31/19 08/22/19 Tamsulosin [Flomax] 0.4 mg PO DAILY 07/31/19 08/22/19 Warfarin [Coumadin] 2.5 mg PO 1-2XD 07/31/19 07/31/19 buPROPion HCL [Bupropion HCl] 75 mg PO DAILY 07/31/19 08/22/19 calcitrioL [Calcitriol] 0.25 mcg PO Q2D 07/31/19 08/22/19 Carbidopa/Levodopa 25/100 [Sinemet 1 each PO TID 08/22/19 08/22/19 25 mg/100 mg] Latanoprost 0.005% Ophth Drops 1 drops EACHEYE QPM 08/22/19 08/22/19 [Xalatan Ophth Drops] amLODIPine [Norvasc] 5 mg PO DAILY 08/22/19 08/22/19 - Allergies Allergies/Adverse Reactions: Allergies Allergy/AdvReac Type Severity Reaction Status Date / Time No Known Drug Allergies Allergy Verified 08/22/19 15:00 Review of Systems - Constitutional Constitutional: reports: Fever, Chills - Eyes Eyes: denies: Pain, Spots in vision, Field loss - Ears, Nose & Throat Ears, Nose & Throat: denies: Ear pain, Nosebleeds, Sore throat, Hoarseness - Cardiovascular Cariovascular: denies: Irregular heart rate, Palpitations, Chest pain, Edema, Lightheadedness, Syncope, Exertional dyspnea, Decr. exercise tolerance - Respiratory Respiratory: denies: Cough, Sputum production, Wheezing, Snoring, Hemoptysis, Orthopnea, SOB at rest, SOB with exertion - Gastrointestinal Gastrointestinal: denies: Abdominal pain, Abdominal distention, Constipation, Diarrhea, Rectal bleeding, Black stools, Bloody stools, Nausea, Vomiting, Coffee grounds emesis - Genitourinary Genitourinary: denies: Dysuria, Frequency, Urgency, Hematuria - Musculoskeletal Musculoskeletal: denies: Muscle pain, Muscle aches, Joint swelling - Integumentary Integumentary: denies: Rash, Pruritis, Dryness - Neurological Neurological: reports: Focal weakness, Pre-existing deficit, Abnormal gait, Incoordination. denies: Headache, Dizziness, Numbness, Seizures, Slurred speech - Psychiatric Psychiatric: denies: Depression, Suicidal, Delusions, Hallucinations, Homicidal - Endocrine Endocrine: denies: Polyuria - Hematologic/Lymphatic Hematologic/Lymphatic: denies: Anemia, Blood clots - All Other Systems All Other Systems: reports: Other (pt's provide above informations) Exam - Vital Signs Vital Signs: Vital Signs x48h Temp Pulse Resp BP Pulse Ox 08/22/19 17:11 39.5 C H 87 22 103/68 98 08/22/19 15:46 38.3 C H 80 22 114/105 H 100 08/22/19 15:20 83 22 98 08/22/19 14:45 38.5 C H 126 H 23 108/73 98 - Physical Exam General Appearance: positive: No acute distress, Alert. negative: Lethargic Eyes Bilateral: positive: Normal inspection, PERRL, No lid inflammation ENT: positive: ENT inspection nml, Pharynx nml, No signs of dehydration. negative: Purulent nasal drainage Neck: positive: Nml inspection, Thyroid nml, No JVD, Trachea midline. negative: Thyromegaly, Lymphadenopathy (R), Lymphadenopathy (L), Stiff neck, Tracheal deviation Respiratory: positive: Chest non-tender, No respiratory distress, Breath sounds nml. negative: Wheezes, Rales, Rhonchi Cardiovascular: positive: Regular rate & rhythm, No murmur, No gallop. negative: Irregularly irregular, Extrasystoles, Tachycardia, Bradycardia, JVD present, Systolic murmur, Diastolic murmur Peripheral Pulses: positive: 2+ Abdomen: positive: Non-tender, No organomegaly, Nml bowel sounds, No distention. negative: Tenderness, Guarding, Rebound Back: positive: Nml inspection. negative: CVA tenderness (R), CVA tenderness (L) Skin: positive: Color nml, No rash, Warm, Dry. negative: Cyanosis, Diaphoresis, Pallor Extremities: positive: Non-tender. negative: Calf tenderness, Latrice's sign/cords Neurologic/Psychiatric: positive: Disoriented to person, Disoriented to place, Disoriented to time, Weakness, Sensory loss. negative: Oriented x3, Motor nml, Sensation nml, Facial droop, Slurred/abnml speech Sepsis Event Note (H) - Evaluation Current Stage of Sepsis: Sepsis Possible source of Sepsis: positive: Genitourinary - Sepsis Criteria Sepsis Criteria: Recorded Temperature greater than 38.3C or Less than 36C, Recorded Heart Rate greater than 90 bpm, Renal: urine output less than 0.5ml/kg/hr for 2 hours or creatinine gr Conclusion/Plan - Problem List (1) Stroke Conclusion/Plan: pt's persistent present weakness on left upper and lower extremities. pt had stroke on two weeks ago. per pt's report pt's left side weakness became worsening on today. unfortunately the new symptoms happened on the morning. pt has hx of both hemorrhage and clots stroke at [place]. pt has hx of afib on Coumadin but the dosage of Coumadin is not conformed yet. INR is 1.[address] of head is unremarkable start Aspirin and Lipitor, and lipid panel. order MRI, ECHO, US of Carotid order PT/OT/ST. pt's report pt has no dysphagia before hold BP meds and let his BP rise (2) Altered mental status Conclusion/Plan: pt is confused. it is likely from his stroke and infection from his UTI treat with antibiotics for his infection, and stroke neuro check for pt Qualifiers: Altered mental status type: unspecified Qualified Code(s): R41.82 - Altered mental status, unspecified (3) Sepsis Conclusion/Plan: pt has 39.5 degree fever, AMS, UTI, and BP is ruing slight lower today now treat infection with Cefepime and Vancomycin for his high fever, and sepsis IVF of NS tele and vital monitor closely blood cultur is pending now (4) UTI (urinary tract infection) Conclusion/Plan: UA analysis indicate UTI, UA culture is pending now treat with antibiotics, IVF of NS followup UA culture Qualifiers: Urinary tract infection type: acute cystitis Hematuria presence: without hematuria Qualified Code(s): N30.00 - Acute cystitis without hematuria (5) Atrial fibrillation Conclusion/Plan: pt has hx of afib, he is on Coumadin. now his HR is stable, will resume his Coumadin after confirmed by Pharmacy on tele and carlos a check PT/INR daily Qualifiers: Atrial fibrillation type: unspecified Qualified Code(s): I48.91 - Unspec ified atrial fibrillation (6) Hypertension Conclusion/Plan: pt's bp is slight lower now, hold home BP meds, vital closely monitor pt (7) CKD (chronic kidney disease) stage 4, GFR 15-29 ml/min Conclusion/Plan: pt has hx of stage 4 CKD, will hydration and avoid nephrological toxical agents (8) Parkinson disease Conclusion/Plan: stable, resume home meds (9) Hypothyroidism Conclusion/Plan: check TSH, resume home Levothyrosine (10) Bipolar disorder Conclusion/Plan: stable now , will resume home divalproex, and check serum depakote - Lab Results Fish Bones: 08/22/19 15:40 08/22/19 15:40 Core Measures - Anticipated LOS I expect patient to be DC'd or transferred within 96 hours.: Yes - Stroke - Rehab Assessment Rehab services assessment to be ordered?: Yes - AMI - Statin at Admit Aspirin Prescribed on Admit: Yes
[2019-08-22] MEDS ORDERED: SODIUM CHLORIDE 0.9% 1,000 ML IV SCH (18:00)
[2019-08-22] MEDS ORDERED: PIPERACILLIN/TAZOBACTAM 2.25 GM in SODIUM CHLORIDE 0.9% MINIBAG 100 ML IV SCH (18:00)
[2019-08-22] MEDS ORDERED: VANCOMYCIN INJ 2 GM in SODIUM CHLORIDE 0.9% 500 ML IV ONE (20:00)
[2019-08-22] MEDS: SODIUM CHLORIDE 0.9% 1,000 ML IV SCH (20:47)
[2019-08-22] MEDS: CEFEPIME 2 GM in SODIUM CHLORIDE 0.9% MINIBAG 100 ML IV SCH (20:47)
--- NOTE | 2019-08-22 20:53 | MRI Report ---
Reason: stroke Procedure Date: 08/22/2019 Accession Number: [id number] / [id number] Procedure: MRI - Brain W/O CPT Code: Addended Final Report FULL RESULT: EXAM: MRI BRAIN WITHOUT CONTRAST EXAM DATE: 08/22/2019 08:21 PM. CLINICAL HISTORY: Stroke. Garbled speech. Left-sided facial droop. COMPARISON: HEAD W/O 08/22/2019 3:05 PM. HEAD W/O 07/31/2019 11:47 AM. TECHNIQUE: Multiplanar, multisequence T1-weighted and fluid-sensitive MR sequences of the brain were performed. Sequences optimized for routine evaluation. Other: None. IV Contrast: None. FINDINGS: (Study is somewhat limited by motion artifact.) Brain Volume: Mild age advanced volume loss is present. Parenchyma/Dura: There is an 11 mm focus of signal abnormality with restricted diffusion, decreased T1, and increased T2/FLAIR signal is noted in the right real radiata lateral to the body of the lateral ventricle. This is in the posterior frontal region. No associated hemorrhage. Age-related atrophy is seen. Mild confluent periventricular with patchy deep white matter T2/FLAIR bright signal seen throughout the cerebral hemispheres. No cortical signal abnormality. No intracranial mass or hemorrhage is noted. Ventricles/Cisterns: Prominence to the ventricular system and overlying cortical sulci is noted. No hydrocephalus.No abnormal extra-axial fluid collection or hemorrhage. Orbits: Symmetric and unremarkable. Sella Turcica: The pituitary gland, cavernous sinuses, suprasellar cistern and optic chiasm are unremarkable. IAC: Symmetric and unremarkable. Vasculature: Normal signal flow void is seen in the major arterial structures at the skull base. Sinuses: No acute appearing sinus disease. Bones: No focal pathologic appearing marrow signal changes. Other: None. IMPRESSION: 1. There is an 11 mm acute infarct in the right posterior frontal real radiata. No associated hemorrhage. 2. Moderate diffuse atrophy. Consequent prominence to the ventricular system and overlying cortical sulci is noted. 3. Mild white matter signal abnormality is seen in the cerebral hemispheres. This is nonspecific. This can be seen secondary to small vessel ischemic change. RADIA The call report notification system was initiated by Dr. Vinay Hunter at 08:49 PM on 08/22/2019. ADDENDUM: 08/22/19 21:33 The above call report findings were discussed with Treating Hospitalist Physician by Dr. Vinay Hunter at 09:33 PM on 08/22/2019.
[2019-08-22] MEDS ORDERED: ATORVASTATIN 40 MG TABLET PO SCH (21:00)
[2019-08-22] MEDS ORDERED: HEPARIN 5,000 UNIT/ML VIAL SUBQ SCH (21:00)
[2019-08-22] MEDS: CARBIDOPA/LEVODOPA 25 MG/100 MG TABLET PO SCH (21:20)
[2019-08-22] MEDS: DIVALPROEX DR 250 MG TABLET PO SCH (21:20)
[2019-08-22] MEDS: LATANOPROST 0.005% OPHTH DROPS EACHEYE SCH (21:21)
--- NOTE | 2019-08-22 22:01 | PROVIDER PROGRESS NOTE ---
Interactive Art Director Note - Interactive Art Director Note Interactive Art Director Note: I was notified by radiology around 9:30pm on 08/22/19 that patient has an 11mm acute infarct in the right posterior frontal real radiata. There was no associated hemorrhage. I updated the patient's who is at bedside. She states the patient's mentation has been different for the past couple of days. She also add that since his previous CVA approximately 3 weeks ago his physical ability has decreased significantly. She asked if the patient could go back to inpatient rehab at [facility]. The patient was resting comfortably when I entered the room to talk to his . He could not hold still earlier in the night when the Carotid doppler was attempted so I asked for it to be deferred to the next day.
[2019-08-22] MEDS: SODIUM CHLORIDE FLUSH 0.9% 10 ML SYRINGE IVP SCH (23:53)
[2019-08-23] MEDS: SODIUM CHLORIDE 0.9% 1,000 ML IV SCH ×3 (04:15→21:18)
[2019-08-23 05:11] LABS: BASOPHILS % (AUTO) 0.3 %; EOSINOPHILS # (AUTO) 0.2 10^3/uL (0.0-0.7); EOSINOPHILS % (AUTO) 1.7 %; HGB - HEMOGLOBIN 9.3 g/dL (14.0-18.0); LYMPHOCYTES # (AUTO) 0.8 10^3/uL (1.5-3.5); LYMPHOCYTES % (AUTO) 7.2 %; MEAN CORPUSCULAR HEMOGLOBIN 33.3 pg (27.0-31.0); MEAN CORPUSCULAR HGB CONC 32.3 g/dL (32.0-36.0); MEAN CORPUSCULAR VOLUME 103.2 fL (80.0-94.0); MEAN PLATELET VOLUME 11.4 fL (7.4-11.4); MONOCYTES # (AUTO) 0.6 10^3/uL (0.0-1.0); NEUTROPHILS # (AUTO) 8.9 10^3/uL (1.5-6.6); NEUTROPHILS % (AUTO) 83.2 %; RED BLOOD COUNT 2.79 10^6/uL (4.70-6.10); RED CELL DISTRIBUTION WIDTH 15.5 % (12.0-15.0); WHITE BLOOD COUNT 10.7 x10^3/uL (4.8-10.8)
[2019-08-23 05:13] LABS: CALCIUM 8.7 mg/dL (8.5-10.3); CREATININE 2.9 mg/dL (0.6-1.2)
[2019-08-23 05:20] LABS: PLT - PLATELET COUNT 86 10^3/uL (130-450)
[2019-08-23 05:25] LABS: CHOL/HDL RATIO 2.3 (<5.0); CHOLESTEROL 84 mg/dL; HDL CHOLESTEROL 36 mg/dL
[2019-08-23 05:26] LABS: INR 1.4 (0.8-1.2); PT - PROTHROMBIN TIME 15.9 secs (9.9-12.6)
[2019-08-23] MEDS: CEFEPIME 2 GM in SODIUM CHLORIDE 0.9% MINIBAG 100 ML IV SCH (06:16)
[2019-08-23] MEDS: PANTOPRAZOLE 40 MG TABLET PO SCH (06:19)
[2019-08-23] MEDS: LEVOTHYROXINE 25 MCG TABLET PO SCH (06:19)
[2019-08-23] MEDS: CARBIDOPA/LEVODOPA 25 MG/100 MG TABLET PO SCH ×3 (06:19→21:10)
[2019-08-23] MEDS: DIVALPROEX DR 250 MG TABLET PO SCH ×3 (06:19→21:10)
[2019-08-23] MEDS: BUPROPION HCL 75 MG PO SCH (08:24)
[2019-08-23] MEDS: SODIUM CHLORIDE FLUSH 0.9% 10 ML SYRINGE IVP SCH ×2 (08:24→18:45)
[2019-08-23] MEDS: ASPIRIN CHEW 81 MG TABLET PO SCH (08:24)
[2019-08-23] MEDS ORDERED: cefTRIAXone 1 GM in SODIUM CHLORIDE 0.9% MINIBAG 100 ML IV SCH (09:00)
[2019-08-23] MEDS ORDERED: SODIUM CHLORIDE 0.9% 1,000 ML IV SCH ×2 (09:27→15:47)
[2019-08-23 09:40] LABS: VALPROIC ACID (DEPAKOTE) 67.4 ug/mL
--- NOTE | 2019-08-23 11:13 | ADVANCE CARE PLANNING NOTE ---
Advance Care Planning - Planning Encounter Date: 08/23/19 Time: 11:04 Purpose: advanced care plan for pt Parties in Attendance: pt's and me Decisional Capacity of the Patient: pt has very limited capacity to make his medical decision, based on pt's multiple times of stroke, and underline of dementia. - Diagnosis for Encounter (2) Altered mental status Qualifiers: Altered mental status type: unspecified Qualified Code(s): R41.82 - Altered mental status, unspecified (4) UTI (urinary tract infection) Qualifiers: Urinary tract infection type: acute cystitis Hematuria presence: without hematuria Qualified Code(s): N30.00 - Acute cystitis without hematuria (5) Atrial fibrillation Qualifiers: Atrial fibrillation type: unspecified Qualified Code(s): I48.91 - Unspecified atrial fibrillation - Encounter Subjective/Patient's Story: pt's and me sit down to discuss pt's care plan. Per pt's report pt had stroke recently in [place] which significantly affect his capacity to walk, talk, and cognitive. His quality life is significantly declined since that. Also pt has stage 4 kidney failure, pt always feel tired and fatigue per his report. pt's quality life is significantly affected as well. Now pt has another new stroke, MRI of his brain confirm pt has right brain stroke at 11mm size, and pt has more weakness on left of his body, his speech is mild affected as well. His ambulation and balance has significantly affected by this new stroke. pt also has Parkinson disease which has already significantly affect his quality of life. At this point, pt's would like to choose DNR/DNI for his code status and focus on comfort measure. The new PLOST is signed by her, and will be scanned to computer. Objective/Medical Story: multiple times of stroke, new stroke on yesterday, kidney failure on stage 4, afib with Coumadin, left side paralysis, HTN, hypothyroidism, bipolar disease, Parkinson disease. Goals of Care: comfortable measure, focus on quality of life Plan: keep DNR/DNI code status, comfortable measure, his will sign the new PLOST Code Status: Do Not Attempt Resuscitation Time spent on advance care plannin
[2019-08-23 11:17] LABS: HB2 TOTAL 9.1 g/dL; HEMOGLOBIN A1C 0.39 g/dL; HEMOGLOBIN A1C % 6.1 % (4.6-6.2)
--- NOTE | 2019-08-23 12:06 | PROVIDER PROGRESS NOTE ---
Assessment/Plan - Problem List (1) Stroke Assessment/Plan: 2 MRI confirm pt has right 11 mm acute infarct in the right posterior frontal real radiata, no associated hemorrhage. But pt appear no dysphagia, he use his right hand to ate his breakfast today morning. He also present relative intact speech. Pt had unremarkable Carotid US and ECHO in [place] about 2 weeks which revealed 62% EF. continue Aspirin and Lipitor, will resume home Coumadin after pharmacy confirm continue PT/OT, followup ST pt's persistent present weakness on left upper and lower extremities. pt had stroke on two weeks ago. per pt's report pt's left side weakness became worsening on today. unfortunately the new symptoms happened on the morning. pt has hx of both hemorrhage and clots stroke at [place]. pt has hx of afib on Coumadin but the dosage of Coumadin is not conformed yet. INR is 1.[address] of head is unremarkable start Aspirin and Lipitor, and lipid panel. order MRI, ECHO, US of Carotid order PT/OT/ST. pt's report pt has no dysphagia before hold BP meds and let his BP rise (2) Altered mental status Conclusion/Plan: 2 improved. pt is alert and oriented to himself and location, but not the time. continue neuro check pt is confused. it is likely from his stroke and infection from his UTI treat with antibiotics for his infection, and stroke neuro check for pt (3) Sepsis Conclusion/Plan: 2 improved. pt has no more fever, or chill. pt's mental status is becoming more improved and clear. UA analysis reveals Ecoli. continue cefepime, d/c Vancomycin. pt has stage 4 CKD. Ecoli is gram negative, cefepim is good for Ecoli pt has 39.5 degree fever, AMS, UTI, and BP is ruing slight lower today now treat infection with Cefepime and Vancomycin for his high fever, and sepsis IVF of NS tele and vital monitor closely blood culture is pending now (4) UTI (urinary tract infection) Conclusion/Plan: 2 UA analysis reveals Ecoli. continue cefepime, d/c Vancomycin. UA analysis indicate UTI, UA culture is pending now treat with antibiotics, IVF of NS followup UA culture (5) Atrial fibrillation Conclusion/Plan: 2 controlled HR, will continue Coumadin after confirmed by pharmacy. pt has no associated hemorrhage stroke. continue tele and vital monitor continue check PT/INR pt has hx of afib, he is on Coumadin. now his HR is stable, will resume his Coumadin after confirmed by Pharmacy on tele and carlos a check PT/INR daily (6) Hypertension Conclusion/Plan: pt's bp is slight lower now, hold home BP meds, vital closely monitor pt (7) CKD (chronic kidney disease) stage 4, GFR 15-29 ml/min Conclusion/Plan: pt has hx of stage 4 CKD, will hydration and avoid nephrological toxical agents (8) Parkinson disease Conclusion/Plan: stable, resume home meds (9) Hypothyroidism Conclusion/Plan: check TSH, resume home Levothyrosine (10) Bipolar disorder Conclusion/Plan: stable now , will resume home divalproex, and check serum depakote (11) chronic thrombocytopenia Platelet is 86 today. pt denies bleeding. continue lab monitor (2) Altered mental status Qualifiers: Altered mental status type: unspecified Qualified Code(s): R41.82 - Altered mental status, unspecified (4) UTI (urinary tract infection) Qualifiers: Urinary tract infection type: acute cystitis Hematuria presence: without hematuria Qualified Code(s): N30.00 - Acute cystitis without hematuria (5) Atrial fibrillation Qualifiers: Atrial fibrillation type: unspecified Qualified Code(s): I48.91 - Unspecified atrial fibrillation - Current Meds Current Meds: Current Medications Generic Name Dose Route Start Last Admin Trade Name Freq PRN Reason Stop Dose Admin Aspirin 81 mg 08/23/19 09:00 08/23/19 08:24 [facility] Aspirin PO 81 mg DAILY TAMY Administration Atorvastatin Calcium 40 mg 08/22/19 21:00 08/22/19 21:20 Lipitor PO 40 mg QPM TAMY Administration Carbidopa/Levodopa 1 tab 08/22/19 22:00 08/23/19 06:19 Sinemet 25 Mg/100 Mg PO 1 tab TID TAMY Administration Divalproex Sodium 500 mg 08/22/19 22:00 08/23/19 06:[address] PO 500 mg TID TAMY Administration Cefepime HCl 2 gm/ Sodium 100 mls @ 200 mls/hr 08/22/19 19:00 08/23/19 07:27 Chloride IV Infused Q12H TAMY Infusion Sodium Chloride 1,000 mls @ 75 mls/hr 08/23/19 09:27 08/23/19 09:56 Normal Saline 0.9% IV 08/24/19 12:06 75 mls/hr .[id number] TAMY Administration Latanoprost 1 drops 08/22/19 21:00 08/22/19 21:21 Xalatan Ophth Drops EACHEYE Not Given QPM TAMY Levothyroxine Sodium 50 mcg 08/23/19 07:00 08/23/19 06:19 Synthroid PO 50 mcg QDAC TAMY Administration Pantoprazole Sodium 40 mg 08/23/19 07:00 08/23/19 06:19 Protonix PO Not Given QDAC TAMY Bupropion Hcl 75 Mg 1 each 08/23/19 09:00 08/23/19 08:24 PO Not Given DAILY TAMY Sodium Chloride 10 ml 08/23/19 01:00 08/23/19 08:24 Normal Saline Flush 0.9% IVP Not Given 0100,0900,1700 TAMY - Lab Result Fish Bone Diagrams: 08/23/19 04:25 08/23/19 04:25 - Additional Planning My Orders: My Active Orders 08/22/19 17:08 Activity Orders [RC] Q2HR IO [RC] IOSHIFT Initiate Bowel Care Protocol [RC] .protocol Initiate Line Care Protocol [RC] QSHIFT Initiate Personal Care Protoco [RC] .protocol Oxygen Therapy [RC] Routine Telemetry- [RC] Q4HR Vital Signs [RC] Q4HR Acetaminophen [Tylenol] 650 mg PO Q4HR PRN Ondansetron Inj [Zofran Inj] 4 mg IVP Q6HR PRN Sodium Chloride Flush 0.9% [Normal Saline Flush 0.9%] 10 ml IVP PRN PRN Code Status [OTHERS] Routine Condition of Patient [OTHERS] Routine DVT Prophylaxis [OTHERS] Routine 08/22/19 17:13 IV Insert [RC] .ONCE SCDs [RC] QSHIFT 08/22/19 17:49 Carotid Doppler Complete [US] Routine 08/22/19 18:57 Neuro Check [RC] QSHIFT 08/22/19 19:00 Cefepime 2 gm Sodium Chloride 0.9% Minibag [Normal Saline 0.9% Minibag] 100 ml IV Q12H 08/22/19 21:00 Atorvastatin [Lipitor] 40 mg PO QPM Latanoprost 0.005% Ophth Drops [Xalatan Ophth Drops] 1 drops EACHEYE QPM 08/22/19 22:00 Carbidopa/Levodopa 25/100 [Sinemet 25 mg/100 mg] 1 tab PO TID Divalproex Dr [Depakote Dr] 500 mg PO TID 08/22/19 Dinner Dysphagia Puree Diet [DIET] 08/23/19 01:00 Sodium Chloride Flush 0.9% [Normal Saline Flush 0.9%] 10 ml IVP 0100,0900,1700 08/23/19 07:00 Levothyroxine [Synthroid] 50 mcg PO QDAC Pantoprazole [Protonix] 40 mg PO QDAC 08/23/19 09:00 Aspirin Chewable [[facility] Aspirin] 81 mg PO DAILY Patient Own Med [Patient Own Medication] 1 each PO DAILY 08/23/19 09:20 Respiratory Care [RC] .ONCE 08/23/19 09:21 Miscellaenous Nursing Order [RC] PRN 08/23/19 09:27 Sodium Chloride 0.9% [Normal Saline 0.9%] 1,000 ml IV 75 mls/hr 08/23/19 10:06 RT [Home CPAP/BiPAP] [RC] .ONCE 08/23/19 17:00 Saccharomyces Boulardii [Florastor] 250 mg PO BIDWM 08/23/19 17:49 Echo Transthoracic Complete [ECHO] Routine 08/24/19 05:00 BMP - BASIC METABOLIC PANEL [CHEM] DAILYLAB CBC - COMP BLD CT W/AUTO DIFF [HEME] DAILYLAB PT WITH INR [COAG] DAILYLAB 08/24/19 09:00 Tamsulosin [Flomax] 0.4 mg PO DAILY 08/25/19 05:00 BMP - BASIC METABOLIC PANEL [CHEM] DAILYLAB CBC - COMP BLD CT W/AUTO DIFF [HEME] DAILYLAB PT WITH INR [COAG] DAILYLAB 08/26/19 05:00 BMP - BASIC METABOLIC PANEL [CHEM] DAILYLAB CBC - COMP BLD CT W/AUTO DIFF [HEME] DAILYLAB PT WITH INR [COAG] DAILYLAB 08/27/19 05:00 BMP - BASIC METABOLIC PANEL [CHEM] DAILYLAB PT WITH INR [COAG] DAILYLAB Subjective - Subjective Patient Reports: Feeling Better Objective Vital Signs: Vital Signs - 24 hr 08/22/19 08/22/19 08/22/19 14:45 15:20 15:46 Temperature 38.5 C H 38.3 C H Heart Rate 126 H 83 80 Heart Rate [ Activity] Heart Rate [ Monitoring electrodes] Heart Rate [ Sitting] Heart Rate [ Supine] Respiratory 23 22 22 Rate Blood Pressure 108/73 114/105 H Blood Pressure [Activity] Blood Pressure [Right Brachial artery] Blood Pressure [Sitting] Blood Pressure [Supine] O2 Saturation 98 98 100 08/22/19 08/22/19 08/22/19 17:11 18:04 18:10 Temperature 39.5 C H 38.6 C H 37.8 C H Heart Rate 87 79 Heart Rate [ Activity] Heart Rate [ 82 Monitoring electrodes] Heart Rate [ Sitting] Heart Rate [ Supine] Respiratory 22 20 20 Rate Blood Pressure 103/68 116/75 Blood Pressure [Activity] Blood Pressure 117/59 L [Right Brachial artery] Blood Pressure [Sitting] Blood Pressure [Supine] O2 Saturation 98 95 97 08/22/19 08/22/19 08/22/19 19:44 20:50 23:40 Temperature 38 C H 37.5 C 37.7 C H Heart Rate Heart Rate [ Activity] Heart Rate [ 76 71 Monitoring electrodes] Heart Rate [ Sitting] Heart Rate [ Supine] Respiratory 18 16 Rate Blood Pressure Blood Pressure [Activity] Blood Pressure 113/57 L 117/76 [Right Brachial artery] Blood Pressure [Sitting] Blood Pressure [Supine] O2 Saturation 98 96 08/23/19 08/23/19 08/23/19 03:55 07:30 10:38 Temperature 37.1 C 37.2 C Heart Rate Heart Rate [ 68 Activity] Heart Rate [ 72 67 Monitoring electrodes] Heart Rate [ 63 Sitting] Heart Rate [ 66 Supine] Respiratory 16 20 Rate Blood Pressure Blood Pressure 105/56 L [Activity] Blood Pressure 118/62 102/51 L [Right Brachial artery] Blood Pressure 121/109 H [Sitting] Blood Pressure 92/54 L [Supine] O2 Saturation 98 99 08/23/19 11:38 Temperature 37.0 C Heart Rate Heart Rate [ Activity] Heart Rate [ 73 Monitoring electrodes] Heart Rate [ Sitting] Heart Rate [ Supine] Respiratory 18 Rate Blood Pressure Blood Pressure [Activity] Blood Pressure 105/56 L [Right Brachial artery] Blood Pressure [Sitting] Blood Pressure [Supine] O2 Saturation 97 Oxygen O2 Source Room air I&O (Last 24 Hrs): Intake and Output Totals x24h 08/21/19 08/22/19 08/23/19 23:59 23:59 23:59 Intake Total 2036.667 2413.667 Output Total 1600 Balance 2036.667 813.667 General: Alert, No acute distress HEENT: Atraumatic Neck: Supple Lymphatic: no adenopathy Neuro: Alert, Focal Deficits Cardiovascular: Regular rate, Normal S1, Normal S2 Respiratory: Chest non-tender, No respiratory distress, Breath sounds nml Abdomen: Normal bowel sounds, Soft, No tenderness Extremities: No edema, Normal pulses - Results Results: Laboratory Results WBC 10.7 x10^3/uL (4.8-10.8) 08/23/19 04:25 RBC 2.79 10^6/uL (4.70-6.10) L 08/23/19 04:25 Hgb 9.3 g/dL (14.0-18.0) L 08/23/19 04:25 Hct 28.8 % (42.0-52.0) L 08/23/19 04:25 MCV 103.2 fL (80.0-94.0) H 08/23/19 04:25 MCH 33.3 pg (27.0-31.0) H 08/23/19 04:25 MCHC 32.3 g/dL (32.0-36.0) 08/23/19 04:25 RDW 15.5 % (12.0-15.0) H 08/23/19 04:25 Plt Count 86 10^3/uL (130-450) L 08/23/19 04:25 MPV 11.4 fL (7.4-11.4) 08/23/19 04:25 Neut # (Auto) 8.9 10^3/uL (1.5-6.6) H 08/23/19 04:25 Lymph # (Auto) 0.8 10^3/uL (1.5-3.5) L 08/23/19 04:25 [place] # (Auto) 0.6 10^3/uL (0.0-1.0) 08/23/19 04:25 Eos # (Auto) 0.2 10^3/uL (0.0-0.7) 08/23/19 04:25 Baso # (Auto) 0.0 10^3/uL (0.0-0.1) 08/23/19 04:25 Absolute Nucleated RBC 0.00 x10^3/uL 08/23/19 04:25 Nucleated RBC % 0.0 /100WBC 08/23/19 04:25 PT 15.9 secs (9.9-12.6) H 08/23/19 04:25 INR 1.4 (0.8-1.2) H 08/23/19 04:25 Sodium 140 mmol/L (135-145) 08/23/19 04:25 Potassium 4.6 mmol/L (3.5-5.0) 08/23/19 04:25 Chloride 110 mmol/L (101-111) 08/23/19 04:25 Carbon Dioxide 21 mmol/L (21-32) 08/23/19 04:25 Anion Gap 9.0 (6-13) 08/23/19 04:25 BUN 51 mg/dL (6-20) H 08/23/19 04:25 Creatinine 2.9 mg/dL (0.6-1.2) H 08/23/19 04:25 Estimated GFR (MDRD) 21 (>89) L 08/23/19 04:25 Glucose 119 mg/dL (70-100) H 08/23/19 04:25 Glycated Hemoglobin 6.1 % (4.6-6.2) 08/23/19 04:25 Estim Average Glucose 128 (70-100) H 08/23/19 04:25 Lactic Acid 1.0 mmol/L (0.5-2.2) 08/22/19 15:40 Calcium 8.7 mg/dL (8.5-10.3) 08/23/19 04:25 Total Bilirubin 1.0 mg/dL (0.2-1.0) 08/22/19 15:40 AST 11 IU/L (10-42) 08/22/19 15:40 ALT < 10 IU/L (10-60) L 08/22/19 15:40 Alkaline Phosphatase 45 IU/L (42-121) 08/22/19 15:40 Total Protein 6.1 g/dL (6.7-8.2) L 08/22/19 15:40 Albumin 2.8 g/dL (3.2-5.5) L 08/22/19 15:40 Globulin 3.3 g/dL (2.1-4.2) 08/22/19 15:40 Albumin/Globulin Ratio 0.8 (1.0-2.2) L 08/22/19 15:40 Triglycerides 36 mg/dL (-149) 08/23/19 04:25 Cholesterol 84 mg/dL (-199) 08/23/19 04:25 LDL Cholesterol, Calc Not Reportable 08/23/19 04:25 VLDL Cholesterol Not Reportable 08/23/19 04:25 HDL Cholesterol 36 mg/dL (60-) L 08/23/19 04:25 LDL/HDL Ratio Not Reportable 08/23/19 04:25 Cholesterol/HDL Ratio 2.3 (<5.0) 08/23/19 04:25 Lipase 38 U/L (22-51) 08/22/19 15:40 TSH 2.36 uIU/mL (0.34-5.60) 08/23/19 04:25 Urine Color YELLOW 08/22/19 16:00 Urine Clarity HAZY (CLEAR) 08/22/19 16:00 Urine pH 6.5 PH (5.0-7.5) 08/22/19 16:00 Ur Specific [place] <=1.005 (1.002-1.030) 08/22/19 16:00 Urine Protein NEGATIVE mg/dL (NEGATIVE) 08/22/19 16:00 Urine Glucose (UA) NEGATIVE mg/dL (NEGATIVE) 08/22/19 16:00 Urine Ketones NEGATIVE mg/dL (NEGATIVE) 08/22/19 16:00 Urine Occult Blood SMALL (NEGATIVE) H 08/22/19 16:00 Urine Nitrite NEGATIVE (NEGATIVE) 08/22/19 16:00 Urine Bilirubin NEGATIVE (NEGATIVE) 08/22/19 16:00 Urine Urobilinogen 0.2 (NORMAL) E.U./dL (NORMAL) 08/22/19 16:00 Ur Leukocyte Esterase MODERATE (NEGATIVE) H 08/22/19 16:00 Urine RBC 0-5 /HPF (0-5) 08/22/19 16:00 Urine WBC >25 /HPF (0-3) H 08/22/19 16:00 Urine WBC Clumps PRESENT 08/22/19 16:00 Ur Squamous Epith Cells RARE Squamous (<= Few) 08/22/19 16:00 Urine Bacteria Rare /HPF (None Seen) 08/22/19 16:00 Ur Microscopic Review INDICATED 08/22/19 16:00 Urine Culture Comments INDICATED 08/22/19 16:00 Last Dose Date UNK 08/23/19 09:00 Last Dose Time UNK 08/23/19 09:00 Valproic Acid 67.4 ug/mL 08/23/19 09:00 - Procedures Procedures: Procedures ENDOSC POLYPECTOMY OF LG INTEST (09/27/13) Sepsis Event Note (H) - Evaluation Current Stage of Sepsis: Sepsis Possible source of Sepsis: positive: Genitourinary - Sepsis Criteria Sepsis Criteria: Recorded Temperature greater than 38.3C or Less than 36C, Recorded Heart Rate greater than 90 bpm, Renal: urine output less than 0.5ml/kg/hr for 2 hours or creatinine gr ABX Reporting Has patient been on IV antibiotics over the past 48 hours?: Yes Current Medications - Current Medications Current Medications: Active Medications Acetaminophen (Tylenol) 650 mg PO Q4HR PRN PRN Reason: Pain 1 to 4 Aspirin ([facility] Aspirin) 81 mg PO DAILY [facility] Last Admin: 08/23/19 08:24 Dose: 81 mg Atorvastatin Calcium (Lipitor) 40 mg PO QPM [facility] Last Admin: 08/22/19 21:20 Dose: 40 mg Carbidopa/Levodopa (Sinemet 25 Mg/100 Mg) 1 tab PO TID [facility] Last Admin: 08/23/19 06:19 Dose: 1 tab Divalproex Sodium (Depakote Dr) 500 mg PO TID [facility] Last Admin: 08/23/19 06:19 Dose: 500 mg Cefepime HCl 2 gm/ Sodium (Chloride) 100 mls @ 200 mls/hr IV Q12H [facility] Last Infusion: 08/23/19 07:27 Dose: Infused Sodium Chloride (Normal Saline 0.9%) 1,000 mls @ 75 mls/hr IV .[id number] [facility] Stop: 08/24/19 12:06 Last Admin: 08/23/19 09:56 Dose: 75 mls/hr Latanoprost (Xalatan Ophth Drops) 1 drops EACHEYE QPM [facility] Last Admin: 08/22/19 21:21 Dose: Not Given Levothyroxine Sodium (Synthroid) 50 mcg PO QDAC [facility] Last Admin: 08/23/19 06:19 Dose: 50 mcg Ondansetron HCl (Zofran Inj) 4 mg IVP Q6HR PRN PRN Reason: Nausea / Vomiting Pantoprazole Sodium (Protonix) 40 mg PO QDAC [facility] Last Admin: 08/23/19 06:19 Dose: Not Given Bupropion Hcl 75 Mg 1 each PO DAILY [facility] Last Admin: 08/23/19 08:24 Dose: Not Given Saccharomyces Boulardii (Florastor) 250 mg PO BIDWM [facility] Sodium Chloride (Normal Saline Flush 0.9%) 10 ml IVP PRN PRN PRN Reason: NEEDED PER PROVIDER ORDERS Sodium Chloride (Normal Saline Flush 0.9%) 10 ml IVP 0100,0900,1700 [facility] Last Admin: 08/23/19 08:24 Dose: Not Given Tamsulosin HCl (Flomax) 0.4 mg PO DAILY [facility] Atorvastatin Calcium 20 mg PO DAILY 07/31/19 Divalproex Sodium 500 mg PO TID 07/31/19 Levothyroxine Sodium [Synthroid] 50 mcg PO DAILY 07/31/19 Tamsulosin [Flomax] 0.4 mg PO DAILY 07/31/19 Warfarin [Coumadin] 2.5 mg PO 1-2XD 07/31/19 buPROPion HCL [Bupropion HCl] 75 mg PO DAILY 07/31/19 calcitrioL [Calcitriol] 0.25 mcg PO Q2D 07/31/19 Carbidopa/Levodopa 25/100 [Sinemet 25 mg/100 mg] 1 each PO TID 08/22/19 Latanoprost 0.005% Ophth Drops [Xalatan Ophth Drops] 1 drops EACHEYE QPM 08/22/19 amLODIPine [Norvasc] 5 mg PO DAILY 08/22/19
--- NOTE | 2019-08-23 15:06 | PHARMACY PROGRESS NOTE ---
- Best Possible Medication History Admit Date and Time: 08/22/19 2652 Processed by: Pharmacy Medication History completed: In progress (awaiting fax from [facility] for warfarin dose; call attempted twice- no answer when transferred to [facility]) As the person ultimately responsible for medication therapy, providers are able to order a medication from an existing home medication list in [facility] via the "Reconcile Routine" prior to Confirmation of that medication by manufacturing support engineer. Such practice is discouraged except when the physician, in their clinical judgment, deems that a medical need exists for a medication without regard to previous use.
[2019-08-23] MEDS ORDERED: WARFARIN 1 MG TABLET PO SCH (16:00)
[2019-08-23] MEDS: SACCHAROMYCES BOULARDII 250 MG CAPSULE PO SCH (16:32)
--- NOTE | 2019-08-23 16:32 | PHARMACY PROGRESS NOTE ---
- Monitoring Indication for anticoagulation: Atrial Fibrillation Potentially interacting medications: aspirin, levothyroxine, cefepime, divalproex Risk factors for bleed: History of past bleeding, History of stroke - Recommendations Dosing: Anticoagulation Monitoring 08/23/19 08/23/19 08/22/19 04:25 04:25 15:40 Hgb 9.3 L Hct 28.8 L PT 15.9 H 16.2 H INR 1.4 H 1.5 H 08/22/19 15:40 Hgb 10.1 L Hct 31.4 L PT INR Last Dose Given: S&S of bleeding: Home dosing is being resumed by provider. Recommending cautious use and close monitoring for bleeding or hemorrhage as there is history (per provider's progre ss notes). Also recommending daily INR monitoring and dose adjustments as clinically appropriate.
[2019-08-23] MEDS ORDERED: ATORVASTATIN 10 MG TABLET PO SCH (21:00)
[2019-08-23] MEDS: LATANOPROST 0.005% OPHTH DROPS EACHEYE SCH (21:09)
[2019-08-24] MEDS: SODIUM CHLORIDE FLUSH 0.9% 10 ML SYRINGE IVP SCH ×3 (01:17→20:21)
[2019-08-24 04:58] LABS: BASOPHILS % (AUTO) 0.2 %; EOSINOPHILS % (AUTO) 0.2 %; HGB - HEMOGLOBIN 8.5 g/dL (14.0-18.0); LYMPHOCYTES % (AUTO) 11.4 %; MEAN CORPUSCULAR HEMOGLOBIN 32.1 pg (27.0-31.0); MEAN CORPUSCULAR VOLUME 103.4 fL (80.0-94.0); MEAN PLATELET VOLUME 11.5 fL (7.4-11.4); MONOCYTES # (AUTO) 0.6 10^3/uL (0.0-1.0); MONOCYTES % (AUTO) 6.3 %; NEUTROPHILS # (AUTO) 7.3 10^3/uL (1.5-6.6); NEUTROPHILS % (AUTO) 81.1 %; PLT - PLATELET COUNT 75 10^3/uL (130-450); RED BLOOD COUNT 2.65 10^6/uL (4.70-6.10); RED CELL DISTRIBUTION WIDTH 15.7 % (12.0-15.0)
[2019-08-24 05:00] LABS: INR 1.5 (0.8-1.2); PT - PROTHROMBIN TIME 16.9 secs (9.9-12.6)
[2019-08-24 05:04] LABS: CALCIUM 8.5 mg/dL (8.5-10.3); CREATININE 2.9 mg/dL (0.6-1.2)
[2019-08-24] MEDS: CEFEPIME 2 GM in SODIUM CHLORIDE 0.9% MINIBAG 100 ML IV SCH (06:09)
[2019-08-24] MEDS: CARBIDOPA/LEVODOPA 25 MG/100 MG TABLET PO SCH ×3 (06:14→21:48)
[2019-08-24] MEDS: PANTOPRAZOLE 40 MG TABLET PO SCH (06:14)
[2019-08-24] MEDS: DIVALPROEX DR 250 MG TABLET PO SCH ×3 (06:14→21:48)
[2019-08-24] MEDS: LEVOTHYROXINE 25 MCG TABLET PO SCH (06:14)
[2019-08-24] MEDS ORDERED: VANCOMYCIN INJ 1 GM, VANCOMYCIN INJ 500 MG in SODIUM CHLORIDE 0.9% 500 ML IV SCH (08:00)
[2019-08-24] MEDS: BUPROPION HCL 75 MG PO SCH (08:52)
[2019-08-24] MEDS: SACCHAROMYCES BOULARDII 250 MG CAPSULE PO SCH ×2 (08:53→17:18)
[2019-08-24] MEDS: ATORVASTATIN 40 MG TABLET PO SCH (08:53)
[2019-08-24] MEDS: ASPIRIN CHEW 81 MG TABLET PO SCH (08:53)
[2019-08-24] MEDS: TAMSULOSIN 0.4 MG CAPSULE PO SCH (08:53)
[2019-08-24 09:10] LABS: ABSOLUTE RETICS # AUTO 0.054 10^6/uL (0.020-0.110); RED BLOOD COUNT 2.56 10^6/uL (4.70-6.10)
[2019-08-24 09:14] LABS: % IRON SATURATION 10 % (20-50); IRON 22 ug/dL (45-182); TOTAL IRON BINDING CAPACITY 214 ug/dL (250-450); TRANSFERRIN 153 mg/dL (180-329)
[2019-08-24 09:36] LABS: FERRITIN 243.8 ng/mL (23.9-336.2)
--- NOTE | 2019-08-24 11:17 | PROVIDER PROGRESS NOTE ---
Subjective - Prog Note Date Prog Note Date: 08/24/19 - Subjective Pt reports feeling: Improved Subjective: pt is comfortable laying at the bed, talking with his friend. Pt denies fever, chill, chest pain, palpitation, shortness of breath. pt's hope we try to transfer pt to [facility] in rehab. I explain to her, we will try but the decision is not made by us, it is made by [facility] in re[facility]. we do not know if [facility] in re[facility] accept pt. she understood this situation. 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 pt's state if [facility] does not accept her , she hope his still come back to [facility] care. Then I discussed with our bilingual social worker for this care plan. Current Medications - Current Medications Current Medications: Active Medications Acetaminophen (Tylenol) 650 mg PO Q4HR PRN PRN Reason: Pain 1 to 4 Aspirin ([facility]ram Aspirin) 81 mg PO DAILY [facility] Last Admin: 08/24/19 08:53 Dose: 81 mg Atorvastatin Calcium (Lipitor) 40 mg PO DAILY [facility] Last Admin: 08/24/19 08:53 Dose: 40 mg Carbidopa/Levodopa (Sinemet 25 Mg/100 Mg) 1 tab PO TID [facility] Last Admin: 08/24/19 06:14 Dose: 1 tab Divalproex Sodium (Depakote Dr) 500 mg PO TID [facility] Last Admin: 08/24/19 06:14 Dose: 500 mg Ferrous Sulfate (Feosol) 325 mg PO DAILYWM [facility] Cefepime HCl 2 gm/ Sodium (Chloride) 100 mls @ 200 mls/hr IV Q24H [facility] Last Infusion: 08/24/19 06:45 Dose: Infused Sodium Chloride (Normal Saline 0.9%) 1,000 mls @ 83.3 mls/hr IV .Q12H1M [facility] Stop: 08/24/19 17:19 Last Infusion: 08/24/19 10:17 Dose: Infused Latanoprost (Xalatan Ophth Drops) 1 drops EACHEYE QPM [facility] Last Admin: 08/23/19 21:09 Dose: 1 drops Levothyroxine Sodium (Synthroid) 50 mcg PO QDAC [facility] Last Admin: 08/24/19 06:14 Dose: 50 mcg Ondansetron HCl (Zofran Inj) 4 mg IVP Q6HR PRN PRN Reason: Nausea / Vomiting Pantoprazole Sodium (Protonix) 40 mg PO QDAC [facility] Last Admin: 08/24/19 06:14 Dose: Not Given Bupropion Hcl 75 Mg 1 each PO DAILY [facility] Last Admin: 08/24/19 08:52 Dose: 1 each Saccharomyces Boulardii (Florastor) 250 mg PO BIDWM [facility] Last Admin: 08/24/19 08:53 Dose: 250 mg Sodium Chloride (Normal Saline Flush 0.9%) 10 ml IVP PRN PRN PRN Reason: NEEDED PER PROVIDER ORDERS Last Admin: 08/23/19 16:33 Dose: 10 ml Sodium Chloride (Normal Saline Flush 0.9%) 10 ml IVP 0100,0900,1700 [facility] Last Admin: 08/24/19 08:53 Dose: 10 ml Tamsulosin HCl (Flomax) 0.4 mg PO DAILY [facility] Last Admin: 08/24/19 08:53 Dose: 0.4 mg Warfarin Sodium (Coumadin) 1 mg PO [facility] Last Admin: 08/23/19 16:32 Dose: 1 mg Warfarin Sodium (Coumadin) 3 mg PO [facility] Atorvastatin Calcium 20 mg PO DAILY 07/31/19 Divalproex Sodium 500 mg PO TID 07/31/19 Levothyroxine Sodium [Synthroid] 50 mcg PO DAILY 07/31/19 Tamsulosin [Flomax] 0.4 mg PO DAILY 07/31/19 buPROPion HCL [Bupropion HCl] 75 mg PO DAILY 07/31/19 calcitrioL [Calcitriol] 0.25 mcg PO Q2D 07/31/19 Carbidopa/Levodopa 25/100 [Sinemet 25 mg/100 mg] 1 each PO TID 08/22/19 Latanoprost 0.005% Ophth Drops [Xalatan Ophth Drops] 1 drops EACHEYE QPM 08/22/19 amLODIPine [Norvasc] 5 mg PO DAILY 08/22/19 Warfarin Sodium [Coumadin] [facility] 08/23/19 Warfarin [Coumadin] 1 mg PO SUWEFR 08/23/19 Objective - Vital Signs/Intake & Output Vital Signs: Vital Signs x48h Temp Pulse Resp BP Pulse Ox 08/24/19 07:35 36.8 C 77 20 120/79 98 08/24/19 04:31 37 C 62 20 113/64 96 Intake & Output: Intake & Output 08/21/19 08/22/19 08/23/19 08/24/19 23:59 23:59 23:59 23:59 Intake Total 2035.667 4554.084 2425.583 Output Total 2500 1900 Balance 2035.7 2054.084 525.583 - Objective General Appearance: positive: No acute distress, Alert. negative: Lethargic Eyes Bilateral: positive: Normal inspection, PERRL, No lid inflammation ENT: positive: ENT inspection nml, Pharynx nml, No signs of dehydration. negative: Purulent nasal drainage Neck: positive: Nml inspection, Thyroid nml, No JVD, Trachea midline. negative: Thyromegaly, Lymphadenopathy (R), Lymphadenopathy (L), Stiff neck, Tracheal deviation Respiratory: positive: Chest non-tender, No respiratory distress, Breath sounds nml. negative: Wheezes, Rales, Rhonchi Cardiovascular: positive: Regular rate & rhythm, No murmur, No gallop. negative: Irregularly irregular, Extrasystoles, Tachycardia, Bradycardia, JVD present, Systolic murmur, Diastolic murmur Peripheral Pulses: 2+ Radial (R), 2+ Radial (L), 2+ Dorsalis pedis (R), 2+ Dorsalis pedis (L) Abdomen: positive: Non-tender, No organomegaly, Nml bowel sounds, No distention. negative: Tenderness, Guarding, Rebound Back: positive: Nml inspection. negative: CVA tenderness (R), CVA tenderness (L) Skin: positive: Color nml, No rash, Warm, Dry. negative: Cyanosis, Diaphoresis, Pallor Extremities: positive: Non-tender, Nml appearance. negative: Full ROM, Calf tenderness, Latrice's sign/cords Neurologic/Psychiatric: positive: Weakness, Sensory loss. negative: Motor nml, Sensation nml, Facial droop, Slurred/abnml speech, Depressed mood/affect - Lab Results Fish Bones: 08/24/19 04:20 08/24/19 04:20 Other Labs: Lab Results x24hrs 02/13/20 02/13/20 02/13/20 Range/Units 04:20 04:20 04:20 WBC (4.8-10.8) x10^3/uL RBC (4.70-6.10) 10^6/uL Hgb (14.0-18.0) g/dL Hct (42.0-52.0) % MCV (80.0-94.0) fL MCH (27.0-31.0) pg MCHC (32.0-36.0) g/dL RDW (12.0-15.0) % Plt Count (130-450) 10^3/uL MPV (7.4-11.4) fL Reticulocyte % (Auto) (0.5-2.3) % Neut # (Auto) (1.5-6.6) 10^3/uL Lymph # (Auto) (1.5-3.5) 10^3/uL [place] # (Auto) (0.0-1.0) 10^3/uL Eos # (Auto) (0.0-0.7) 10^3/uL Baso # (Auto) (0.0-0.1) 10^3/uL Absolute Nucleated RBC x10^3/uL Nucleated RBC % /100WBC Absolute Retic (0.020-0.110) 10^6/uL PT (9.9-12.6) secs INR (0.8-1.2) Sodium (135-145) mmol/L Potassium (3.5-5.0) mmol/L Chloride (101-111) mmol/L Carbon Dioxide (21-32) mmol/L Anion Gap (6-13) BUN (6-20) mg/dL Creatinine (0.6-1.2) mg/dL Estimated GFR (MDRD) (>89) Glucose (70-100) mg/dL Glycated Hemoglobin (4.6-6.2) % Estim Average Glucose (70-100) Calcium (8.5-10.3) mg/dL Iron 22 L (45-182) ug/dL TIBC 214 L (250-450) ug/dL % Saturation 10 L (20-50) % Transferrin 153 L (180-329) mg/dL Ferritin 243.8 (23.9-336.2) ng/mL Lactate Dehydrogenase 124 (91-225) IU/L Vitamin B12 241 (180-914) pg/mL 08/24/19 08/24/19 08/24/19 Range/Units 04:20 04:20 04:20 WBC (4.8-10.8) x10^3/uL RBC 2.56 L (4.70-6.10) 10^6/uL Hgb (14.0-18.0) g/dL Hct (42.0-52.0) % MCV (80.0-94.0) fL MCH (27.0-31.0) pg MCHC (32.0-36.0) g/dL RDW (12.0-15.0) % Plt Count (130-450) 10^3/uL MPV (7.4-11.4) fL Reticulocyte % (Auto) 2.12 (0.5-2.3) % Neut # (Auto) (1.5-6.6) 10^3/uL Lymph # (Auto) (1.5-3.5) 10^3/uL [place] # (Auto) (0.0-1.0) 10^3/uL Eos # (Auto) (0.0-0.7) 10^3/uL Baso # (Auto) (0.0-0.1) 10^3/uL Absolute Nucleated RBC x10^3/uL Nucleated RBC % /100WBC Absolute Retic 0.054 (0.020-0.110) 10^6/uL PT 16.9 H (9.9-12.6) secs INR 1.5 H (0.8-1.2) Sodium 141 (135-145) mmol/L Potassium 4.2 (3.5-5.0) mmol/L Chloride 111 (101-111) mmol/L Carbon Dioxide 20 L (21-32) mmol/L Anion Gap 10.0 (6-13) BUN 50 H (6-20) mg/dL Creatinine 2.9 H (0.6-1.2) mg/dL Estimated GFR (MDRD) 21 L (>89) Glucose 94 (70-100) mg/dL Glycated Hemoglobin (4.6-6.2) % Estim Average Glucose (70-100) Calcium 8.5 (8.5-10.3) mg/dL Iron (45-182) ug/dL TIBC (250-450) ug/dL % Saturation (20-50) % Transferrin (180-329) mg/dL Ferritin (23.9-336.2) ng/mL Lactate Dehydrogenase (91-225) IU/L Vitamin B12 (180-914) pg/mL 08/24/19 08/23/19 Range/Units 04:20 04:25 WBC 9.0 (4.8-10.8) x10^3/uL RBC 2.65 L (4.70-6.10) 10^6/uL Hgb 8.5 L (14.0-18.0) g/dL Hct 27.4 L (42.0-52.0) % MCV 103.4 H (80.0-94.0) fL MCH 32.1 H (27.0-31.0) pg MCHC 31.0 L (32.0-36.0) g/dL RDW 15.7 H (12.0-15.0) % Plt Count 75 L (130-450) 10^3/uL MPV 11.5 H (7.4-11.4) fL Reticulocyte % (Auto) (0.5-2.3) % Neut # (Auto) 7.3 H (1.5-6.6) 10^3/uL Lymph # (Auto) 1.0 L (1.5-3.5) 10^3/uL [place] # (Auto) 0.6 (0.0-1.0) 10^3/uL Eos # (Auto) 0.0 (0.0-0.7) 10^3/uL Baso # (Auto) 0.0 (0.0-0.1) 10^3/uL Absolute Nucleated RBC 0.00 x10^3/uL Nucleated RBC % 0.0 /100WBC Absolute Retic (0.020-0.110) 10^6/uL PT (9.9-12.6) secs INR (0.8-1.2) Sodium (135-145) mmol/L Potassium (3.5-5.0) mmol/L Chloride (101-111) mmol/L Carbon Dioxide (21-32) mmol/L Anion Gap (6-13) BUN (6-20) mg/dL Creatinine (0.6-1.2) mg/dL Estimated GFR (MDRD) (>89) Glucose (70-100) mg/dL Glycated Hemoglobin 6.1 (4.6-6.2) % Estim Average Glucose 128 H (70-100) Calcium (8.5-10.3) mg/dL Iron (45-182) ug/dL TIBC (250-450) ug/dL % Saturation (20-50) % Transferrin (180-329) mg/dL Ferritin (23.9-336.2) ng/mL Lactate Dehydrogenase (91-225) IU/L Vitamin B12 (180-914) pg/mL ABX Reporting Has patient been on IV antibiotics over the past 48 hours?: Yes Sepsis Event Note (H) - Evaluation Current Stage of Sepsis: Sepsis Possible source of Sepsis: positive: Genitourinary - Sepsis Criteria Sepsis Criteria: Recorded Temperature greater than 38.3C or Less than 36C, Recorded Heart Rate greater than 90 bpm, Renal: urine output less than 0.5ml/kg/hr for 2 hours or creatinine gr Assessment/Plan - Problem List (1) Stroke Impression: 08/24 when pt was at the discharge on [facility] before, he required moderate assistance for bed mobility and mechanical lift to go to sit to stand, impaired self-care capacity plan: continue Aspirin and Lipitor, will resume home Coumadin continue PT/OT/ST. consult with bilingual social worker for safely d/c plan as discussed with pt's on Subjective documentation. 08/23 MRI confirm pt has right 11 mm acute infarct in the right posterior frontal real radiata, no associated hemorrhage. But pt appear no dysphagia, he use his right hand to ate his breakfast today morning. He also present relative intact speech. Pt had unremarkable Carotid US and ECHO in [facility] about 2 weeks which revealed 62% EF. continue Aspirin and Lipitor, will resume home Coumadin after pharmacy confirm continue PT/OT, followup ST pt's persistent present weakness on left upper and lower extremities. pt had stroke on two weeks ago. per pt's report pt's left side weakness became worsening on today. unfortunately the new symptoms happened on the morning. pt has hx of both hemorrhage and clots stroke at [facility]. pt has hx of afib on Coumadin but the dosage of Coumadin is not conformed yet. INR is 1.[address] of head is unremarkable start Aspirin and Lipitor, and lipid panel. order MRI, ECHO, US of Carotid order PT/OT/ST. pt's report pt has no dysphagia before hold BP meds and let his BP rise (2) Altered mental status Conclusion/Plan: 08/24 improved. pt is alert and oriented person, location but not time. he is talking with his friend. 08/23 improved. pt is alert and oriented to himself and location, but not the time. continue neuro check pt is confused. it is likely from his stroke and infection from his UTI treat with antibiotics for his infection, and stroke neuro check for pt (3) Sepsis Conclusion/Plan: 08/24 improved. pt has no more fever or chill. blood culture is negative for bacteremia. UA reveals positive for Ecoli and sensitive to all antibiotics continue Cefepime 08/23 improved. pt has no more fever, or chill. pt's mental status is becoming more improved and clear. UA analysis reveals Ecoli. continue cefepime, d/c Vancomycin. pt has stage 4 CKD. Ecoli is gram negative, cefepim is good for Ecoli pt has 39.5 degree fever, AMS, UTI, and BP is ruing slight lower today now treat infection with Cefepime and Vancomycin for his high fever, and sepsis IVF of NS tele and vital monitor closely blood culture is pending now (4) UTI (urinary tract infection) Conclusion/Plan: 08/24 UA reveals positive for Ecoli and sensitive to all antibiotics continue Cefepime 08/23 UA analysis reveals Ecoli. continue cefepime, d/c Vancomycin. UA analysis indicate UTI, UA culture is pending now treat with antibiotics, IVF of NS followup UA culture (5) Atrial fibrillation Conclusion/Plan: 08/24 stable, continue Coumadin as home meds, check PT/INR 08/23 controlled HR, will continue Coumadin after confirmed by pharmacy. pt has no associated hemorrhage stroke. continue tele and vital monitor continue check PT/INR pt has hx of afib, he is on Coumadin. now his HR is stable, will resume his Coumadin after confirmed by Pharmacy on tele and carlos a check PT/INR daily (6) Hypertension Conclusion/Plan: pt's bp is slight lower now, hold home BP meds, vital closely monitor pt (7) CKD (chronic kidney disease) stage 4, GFR 15-29 ml/min Conclusion/Plan: 08/24 stable, stage 4 CKD, continue gently hydration and avoid nephrotoxin, continue lab monitor pt has hx of stage 4 CKD, will hydration and avoid nephrological toxical agents (8) Parkinson disease Conclusion/Plan: stable, resume home meds (9) Hypothyroidism Conclusion/Plan: check TSH, resume home Levothyrosine (10) Bipolar disorder Conclusion/Plan: stable now , will resume home divalproex, and check serum depakote (11) chronic thrombocytopenia Platelet is 86 today. pt denies bleeding. continue lab monitor (2) Altered mental status Qualifiers: Altered mental status type: unspecified Qualified Code(s): R41.82 - Altered mental status, unspecified (4) UTI (urinary tract infection) Qualifiers: Urinary tract infection type: acute cystitis Hematuria presence: without hematuria Qualified Code(s): N30.00 - Acute cystitis without hematuria (5) Atrial fibrillation Qualifiers: Atrial fibrillation type: unspecified Qualified Code(s): I48.91 - Unspecified atrial fibrillation
[2019-08-24] MEDS: FERROUS SULFATE 325 MG TABLET PO SCH (12:18)
[2019-08-24] MEDS ORDERED: WARFARIN 1 MG TABLET PO SCH (15:43)
[2019-08-24] MEDS: SODIUM CHLORIDE 0.9% 1,000 ML IV SCH (20:21)
[2019-08-24] MEDS: LATANOPROST 0.005% OPHTH DROPS EACHEYE SCH (20:21)
[2019-08-25] MEDS: SODIUM CHLORIDE FLUSH 0.9% 10 ML SYRINGE IVP SCH ×2 (01:13→10:50)
[2019-08-25 04:31] LABS: EOSINOPHILS # (AUTO) 0.3 10^3/uL (0.0-0.7); EOSINOPHILS % (AUTO) 4.1 %; HGB - HEMOGLOBIN 8.8 g/dL (14.0-18.0); LYMPHOCYTES # (AUTO) 0.9 10^3/uL (1.5-3.5); LYMPHOCYTES % (AUTO) 14.2 %; MEAN CORPUSCULAR HEMOGLOBIN 31.8 pg (27.0-31.0); MEAN CORPUSCULAR HGB CONC 31.2 g/dL (32.0-36.0); MEAN CORPUSCULAR VOLUME 101.8 fL (80.0-94.0); MEAN PLATELET VOLUME 10.5 fL (7.4-11.4); MONOCYTES # (AUTO) 0.3 10^3/uL (0.0-1.0); MONOCYTES % (AUTO) 4.9 %; NEUTROPHILS # (AUTO) 4.7 10^3/uL (1.5-6.6); NEUTROPHILS % (AUTO) 76.5 %; PLT - PLATELET COUNT 76 10^3/uL (130-450); RED BLOOD COUNT 2.77 10^6/uL (4.70-6.10); RED CELL DISTRIBUTION WIDTH 15.5 % (12.0-15.0); WHITE BLOOD COUNT 6.1 x10^3/uL (4.8-10.8)
[2019-08-25 04:36] LABS: INR 1.3 (0.8-1.2); PT - PROTHROMBIN TIME 14.9 secs (9.9-12.6)
[2019-08-25 04:40] LABS: CALCIUM 8.7 mg/dL (8.5-10.3); CREATININE 2.7 mg/dL (0.6-1.2)
[2019-08-25] MEDS: CEFEPIME 2 GM in SODIUM CHLORIDE 0.9% MINIBAG 100 ML IV SCH (06:05)
[2019-08-25] MEDS: LEVOTHYROXINE 25 MCG TABLET PO SCH (06:06)
[2019-08-25] MEDS: DIVALPROEX DR 250 MG TABLET PO SCH ×2 (06:06→14:07)
[2019-08-25] MEDS: PANTOPRAZOLE 40 MG TABLET PO SCH (06:07)
[2019-08-25] MEDS: CARBIDOPA/LEVODOPA 25 MG/100 MG TABLET PO SCH ×2 (06:07→14:07)
[2019-08-25] MEDS: SODIUM CHLORIDE 0.9% 1,000 ML IV SCH (06:17)
[2019-08-25] MEDS ORDERED: WARFARIN 1 MG TABLET PO SCH (08:00)
[2019-08-25] MEDS: SACCHAROMYCES BOULARDII 250 MG CAPSULE PO SCH (10:49)
[2019-08-25] MEDS: ASPIRIN CHEW 81 MG TABLET PO SCH (10:50)
[2019-08-25] MEDS: TAMSULOSIN 0.4 MG CAPSULE PO SCH (10:50)
[2019-08-25] MEDS: ATORVASTATIN 40 MG TABLET PO SCH (10:50)
[2019-08-25] MEDS: FERROUS SULFATE 325 MG TABLET PO SCH (10:50)
[2019-08-25] MEDS: BUPROPION HCL 75 MG PO SCH (10:51)
--- NOTE | 2019-08-25 14:30 | Discharge Plan ---
"Discharge Plan for SNF / [facility] - Discharge Plan And Transition Orders Problem Reviewed?: Yes Disposition: 03 SNF DC/Xfer Condition: Poor Allergies and Adverse Reactions: Allergies Allergy/AdvReac Type Severity Reaction Status Date / Time No Known Drug Allergies Allergy Verified 08/22/19 15:00 Health Concerns: stroke, UTI, CKD Plan of Treatment: pt was found to have acute stroke in this time. pt is prescribed aspirin 81 mg plus Lipitor 40 mg daily, continue PT/OT pt was found to have sepsis with UTI infection. pt is prescribed Ceftin 500mg daily to finish the treatment course. advise keep pt hydration, pt has hx of stage 4 CKD. Care Goals: stabilization and improvement of pt's medical conditions. Assessment: discussed with pt and pt's for the care plan, they both understood. - SNF / [facility] Transition Orders Admit to (Facility): [facility] Under the care of (Name): health care provider of [facility], Filiberto Sutherland. Discharge Diagnosis: acute stroke, sepsis, AMS, UTI, Afib, HTN, CKD, Parkinson's disease, Hypothyroidism, Bipolar disorder, chronic thrombocyopenia Medicare Certification Statement: I certify that [facility] care is medically necessary on a continuing basis for any of the conditions for which she/he is receiving care during hospitalization. Notify PCP of admission and forward orders to primary provider for signature. Weight on admission and: Daily Call PCP immediately if weight increases by: 2 kg Other Notification Orders: Call PCP immediately if patient develops dyspnea, chest pain/tightness or edema. House Bowel Program: Yes Additional Bowel Program Orders: If no BM after 2 days, nurse may give M.O.M. 30ml PO PRN and/or ducolax Supp 1 MO and/or JAMES 250mg P.O., and/or senna 1-2 tabs PO. On day 3 nurse may give repeat above order until residents constipation is resolved. Annual Influenza Vaccine (between Mar 12 and October 09): Yes Two-step PPD per [facility] [phone] or approved exception documents: Yes Treatments & Other Orders: pt was found to have acute stroke in this time. pt is prescribed aspirin 81 mg plus Lipitor 40 mg daily, continue PT/OT. pt was found to have sepsis with UTI infection. pt is prescribed Ceftin 500mg daily to finish the treatment course. advise keep pt hydration, pt has hx of stage 4 CKD. Medication Orders: PLEASE REFER TO THE DISCHARGE MEDICATION LIST. Insulin Orders?: No - Medications New Prescriptions: Aspirin Chewable [[facility]ram Aspirin] 81 mg PO DAILY #7 tablet Atorvastatin [Lipitor] 40 mg PO DAILY #7 tablet cefUROXime axetiL [Ceftin] 500 mg PO DAILY #10 tablet - Diet Type: Geriatric Texture: Regular Liquids: Thin May have monthly special meal: Yes - Therapies | Activity Therapy: Evaluation | Treat if indicated: PT, OT Rehabilitation Potential: Maximize functional status Activity: Activity as Tolerated"
--- NOTE | 2019-08-25 14:54 | DISCHARGE SUMMARY ---
Discharge Summary Admit Date: 08/22/19 Discharge Date: 08/25/19 Discharging Provider: Kannan Olmstead Primary Care Provider: Jorge Pierre Condition at Discharge: Poor Discharge Disposition: SNF DC/Xfer Discharge Facility Name: [facility] - DIAGNOSES Admission Diagnoses: 1) Stroke (2) Altered mental status (3) Sepsis (4) UTI (urinary tract infection) (5) Atrial fibrillation (6) Hypertension (7) CKD (chronic kidney disease) stage 4, GFR 15-29 ml/min (8) Parkinson disease (9) Hypothyroidism (10) Bipolar disorder Discharge Diagnoses with Status of Each Condition: (1) Stroke pt's MRI confirm pt has right 11 mm acute infarct in the right posterior frontal real radiata, no associated hemorrhage. Pt had unremarkable Carotid US and ECHO in [place] about 2 weeks which revealed 62% EF. pt was prescribed Aspirin and Lipitor pt has good recovery from this stroke. Pt demonstrated good strength in his L UE, enough to push up from the bed, pull up using the trapeze and lowering himself in to the recliner with assistance, per PT report. Inpt rehab declined pt per social service technician. pt's agreed pt is d/c to [facility] for SNF. (2) Altered mental status resolved as pt's baseline (3) Sepsis resolved. pt was found septic at the admission. pt has 39.5 degree fever, AMS, UTI, and lower BP pt was prescribed antibiotics Ceftin, dosage is accorded to pt's renal GFR. (4) UTI (urinary tract infection) Conclusion/Plan: UA analysis found pt is positive to Ecoli. pt is prescribed Ceftin to finish the treatment course. (5) Atrial fibrillation stable (6) Hypertension stable (7) CKD (chronic kidney disease) stage 4, GFR 15-29 ml/min improved (8) Parkinson disease stable (9) Hypothyroidism stable (10) Bipolar disorder Conclusion/Plan: stable (11) chronic thrombocytopenia stable. - HPI History of Present Illness: Mr. Cordero is a 73-year-old male with a PMH significant for s/p recent stroke, HTN, arrhythmia, sleep apnea with CPAP use, Parkinson's, bipolar disorder, chronic back pain, hypothyroidism, CKD, afib on Coumadin, who present ER for left side weakness. pt is confused and can not provide medical history. pt's is at the bedside to provide some medical history. She report pt had both hemorrhage and clots stroke at [place] about two weeks ago then pt was d/c to [facility] for rehab. she report pt's left side weakness appear again on today morning when she saw pt. She report pt had hx of left side weakness from last stroke but became better after d/c from [place]. Per ER's report, at this morning at approximately 11 AM [facility][1] found pt to have garbled speech and a left-sided facial droop. Pt took Coumadin at [facility]. Per ER report, the nursing notes in [facility] also indicate that he felt cold at that time, and [facility] did not call an ambulance at that time because the nursing notes state that pt's vital signs were stable, so there was nothing that the ER could do for this. In ER pt was found to have fever at 39.5, UA analysis indicate UTI. CXR and CT of head on today reveals unremarkable. Route lab test shows pt's creatinine is 2.9, INR is 1.5 Discussed with pt's about the care plan and goal of care. pt's recognized pt has severe medical conditions which could become more worsening. she state if any happens, [facility] call her DI[facility]. she state pt's code status is DNR/DNI. - HOSPITAL COURSE Hospital Course: pt was found to have acute stroke with left side weakness, high fever with sepsis. pt was found acute in MRI study as well. pt continue to have PT/OT evaluation and treatment. pt had good recovery from this time stroke. pt was prescribed 81mg Aspirin daily with Lipitor. pt was treated with antibiotics and gently IVF. Then pt's septic was resolved. pt had no more fever or chill, WBC became normal, BP became normal. pt's UA analysis found pt is positive for Ecoli. pt is prescribed antibiotics to finish the treatment course. The detail hospital course is as the blow: (1) Stroke pt's MRI confirm pt has right 11 mm acute infarct in the right posterior frontal real radiata, no associated hemorrhage. Pt had unremarkable Carotid US and ECHO in [place] about 2 weeks which revealed 62% EF. pt was prescribed Aspirin and Lipitor pt has good recovery from this stroke. Pt demonstrated good strength in his L UE, enough to push up from the bed, pull up using the trapeze and lowering himself in to the recliner with assistance, per PT report. Inpt rehab declined pt per social service technician. pt's agreed pt is d/c to [facility] for SNF. (2) Altered mental status resolved as pt's baseline (3) Sepsis resolved. pt was found septic at the admission. pt has 39.5 degree fever, AMS, UTI, and lower BP pt was prescribed antibiotics Ceftin, dosage is accorded to pt's renal GFR. (4) UTI (urinary tract infection) Conclusion/Plan: UA analysis found pt is positive to Ecoli. pt is prescribed Ceftin to finish the treatment course. (5) Atrial fibrillation stable (6) Hypertension stable (7) CKD (chronic kidney disease) stage 4, GFR 15-29 ml/min improved (8) Parkinson disease stable (9) Hypothyroidism stable (10) Bipolar disorder Conclusion/Plan: stable (11) chronic thrombocytopenia stable. - ALLERGIES Allergies/Adverse Reactions: Allergies Allergy/AdvReac Type Severity Reaction Status Date / Time No Known Drug Allergies Allergy Verified 08/22/19 15:00 - MEDICATIONS Home Medications: Ambulatory Orders Medication Instructions Recorded Confirmed Divalproex Sodium 500 mg PO TID 07/31/19 08/22/19 Levothyroxine Sodium [Synthroid] 50 mcg PO DAILY 07/31/19 08/22/19 Tamsulosin [Flomax] 0.4 mg PO DAILY 07/31/19 08/22/19 buPROPion HCL [Bupropion HCl] 75 mg PO DAILY 07/31/19 08/22/19 calcitrioL [Calcitriol] 0.25 mcg PO Q2D 07/31/19 08/22/19 Carbidopa/Levodopa 25/100 [Sinemet 1 each PO TID 08/22/19 08/22/19 25 mg/100 mg] Latanoprost 0.005% Ophth Drops 1 drops EACHEYE QPM 08/22/19 08/22/19 [Xalatan Ophth Drops] amLODIPine [Norvasc] 5 mg PO DAILY 08/22/19 08/22/19 Warfarin Sodium [Coumadin] 3 mg PO MOTUTHSA 08/23/19 08/23/19 Warfarin [Coumadin] 1 mg PO SUWEFR 08/23/19 08/23/19 Aspirin Chewable [[place] 81 mg PO DAILY #7 tablet 08/25/19 Aspirin] Atorvastatin [Lipitor] 40 mg PO DAILY #7 tablet 08/25/19 cefUROXime axetiL [Ceftin] 500 mg PO DAILY #10 tablet 08/25/19 - PHYSICAL EXAM AT DISCHARGE General Appearance: positive: No acute distress, Alert. negative: Lethargic Eyes Bilateral: positive: Normal inspection, PERRL, EOMI, No lid inflammation ENT: positive: ENT inspection nml, Pharynx nml, No signs of dehydration. negative: Purulent nasal drainage, Pharyngeal erythema Neck: positive: Nml inspection, Thyroid nml, No JVD, Trachea midline. negative: Thyromegaly, Lymphadenopathy (R), Lymphadenopathy (L), Stiff neck, Tracheal deviation Respiratory: positive: Chest non-tender, No respiratory distress, Breath sounds nml. negative: Wheezes, Rales, Rhonchi Cardiovascular: positive: Regular rate & rhythm, No murmur, No gallop. negative: Irregularly irregular, Extrasystoles, Tachycardia, Bradycardia, JVD present, Systolic murmur, Diastolic murmur Peripheral Pulses: positive: 2+ Abdomen: positive: Non-tender, No organomegaly, Nml bowel sounds, No distention. negative: Tenderness, Guarding, Rebound Back: positive: Nml inspection. negative: CVA tenderness (R), CVA tenderness (L) Skin: positive: Color nml, No rash, Warm, Dry. negative: Cyanosis, Diaphoresis, Pallor, Skin rash Extremities: positive: Non-tender, Nml appearance. negative: Calf tenderness, Latrice's sign/cords Neurologic/Psychiatric: positive: Sensation nml, Mood/affect nml, Weakness. negative: Sensory loss, Facial droop, Slurred/abnml speech, Depressed mood/affect - LABS Result Diagrams: 08/25/19 04:20 08/25/19 04:20 - SEPSIS Current Stage of Sepsis: Sepsis Possible source of Sepsis: Genitourinary Sepsis Criteria: Recorded Temperature greater than 38.3C or Less than 36C, Recorded Heart Rate greater than 90 bpm, Renal: urine output less than 0.5ml/kg/hr for 2 hours or creatinine gr - FOLLOW UP Follow Up: pt was found to have acute stroke in this time. pt is prescribed aspirin 81 mg plus Lipitor 40 mg daily, continue PT/OT. pt was found to have sepsis with UTI infection. pt is prescribed Ceftin 500mg daily to finish the treatment course. advise keep pt hydration, pt has hx of stage 4 CKD. pt may followup health provider in [facility] when pt is arrival. pt may followup neurologist and makeup sales consultant as out-pt. - TIME SPENT Time Spent in Discharge (Minutes): 40
[2019-08-25 16:22] VITALS: BP 111/68
== END 2019-08-25 16:30 | DRG 64 ==
LOC: EDBD → EDUNIT# → ED 14:32 → MS2 17:08
PROVIDERS: ADMIT Nurse Practitioner Gerontology; ATTEND Nurse Practitioner Gerontology
DX: G45.9 Transient cerebral ischemic attack, unspecified (principal); N30.00 Acute cystitis without hematuria; R41.82 Altered mental status, unspecified; I63.89 Other cerebral infarction; I49.9 Cardiac arrhythmia, unspecified; A41.51 Sepsis due to Escherichia coli [E. coli]; G81.94 Hemiplegia, unspecified affecting left nondominant side; I69.954 Hemiplegia and hemiparesis following unspecified cerebrovascular disease affecting left non-dominant side; N39.0 Urinary tract infection, site not specified; N18.4 Chronic kidney disease, stage 4 (severe); R47.9 Unspecified speech disturbances; I12.9 Hypertensive chronic kidney disease with stage 1 through stage 4 chronic kidney disease, or unspecified chronic kidney disease; R40.4 Transient alteration of awareness; I48.91 Unspecified atrial fibrillation; G20 Parkinson's disease; E03.9 Hypothyroidism, unspecified; D69.6 Thrombocytopenia, unspecified; G47.30 Sleep apnea, unspecified; F31.9 Bipolar disorder, unspecified; I69.328 Other speech and language deficits following cerebral infarction; I69.319 Unspecified symptoms and signs involving cognitive functions following cerebral infarction; G89.29 Other chronic pain; M54.9 Dorsalgia, unspecified; Z66 Do not resuscitate; Z79.01 Long term (current) use of anticoagulants; Z79.899 Other long term (current) drug therapy; Z95.1 Presence of aortocoronary bypass graft
CPT/HCPCS: 36415; 70450; 70551; 71045; 80048; 80053; 80061; 80164; 81001; 82607; 82728; 83036; 83540; 83605; 83615; 83690; 84443; 84466; 85025; 85045; 85610; 87040; 87086; 87181; 92610; 93005; 93306; 96361; 96374; 97162; 97166; 97530; 97535; 99285; A9270; J3370; 81003; 83721

== ENCOUNTER 2019-08-25 16:28 | Outpatient (CLI) | payer MEDICARE, BC | END 2019-08-25 16:29 | LOC: EMS 16:28 | PROVIDERS: ATTEND Surgery | DX: I63.9 Cerebral infarction, unspecified (principal); N39.0 Urinary tract infection, site not specified; I48.91 Unspecified atrial fibrillation; G20 Parkinson's disease; Z74.01 Bed confinement status | CPT/HCPCS: A0425; A0428 ==

== ENCOUNTER 2019-09-19 13:30 | Outpatient (CLI) | payer MEDICARE, BC | END 2019-09-19 13:31 | disposition EMS.NT | LOC: EMS 13:30 | PROVIDERS: ATTEND Surgery | DX: R35.0 Frequency of micturition (principal); R53.1 Weakness ==

== ENCOUNTER 2019-09-29 11:00 | Outpatient (CLI) | payer MEDICARE, BC ==
--- NOTE | 2019-09-29 16:02 | CONSULTATION NOTE ---
Palliative Care Consultation - Referral Referring Provider: Dr. Lucio Cassidy Time of Visit: 9570-8609 Referral setting: Home Referral Reason: CVA/Parkisnon's Disease - Information Sources Records reviewed: Previous records reviewed History/Review of Systems obtained from: Patient, Family (spouse, Ratna) Exam limitations: Other (mildly NOATAK) - History of Present Illness Brief History of Present Illness: This is a 73-year-old gentleman who is seen in evaluation today with his present for a palliative care consultation and due to a recent CVA that resulted in increased debility within his home. On July 31, 2019 the patient presented to [facility] ER with left arm weakness and numbness and on presentation his platelet count was 55 and his INR was 8.2. An MRI showed an acute lacunar infarct right real radiata 10 mm in size. He was transferred to [facility] for care and had further diagnostic testing performed. He developed dysphasia and left arm weakness. He had carotid ultrasounds performed that were unremarkable as well as a transthoracic echo with bubbles that did not show any intracardiac clots or shunts. His ejection fraction on his echo was 62%. It was believed that his CVA was secondary to small vessel disease. He was placed onAspirin therapy and once his warfarin was restarted his aspirin therapy was discontinued. The patient and his also reports that he sustained another CVA in August 2019. The patient was admitted to [facility] from carriage of [facility] due to fever and acute mental status changes was found to have sepsis secondary to a urinary tract infection from E.coli. The patient has a history of diabetes insipidus and this is managed by oral hydration. Due to his inability to stand without assistance he is using a condom cath in the evenings overnight for drainage into a bag. During the day he has a urinal type device that his purchased from [employer] that he uses to collect his urine. He has had 2 urinary tract infections in the last few months per the 's report. The patient has a history of Parkinson's disease. He is managed with carbidopa/levodopa. He is followed by his neurologist Dr. Cynthia Rey. The patient started with symptoms of Parkinson's disease with stiffness and trouble walking in approximately 2014. He was officially diagnosed with Parkinson's disease in 2017. 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 Hernando Tinsley at [facility]. Prior to the patient's CVA in July 2019 and then subsequently in August 2019 with increased debility he was being evaluated for pending kidney transplant. The patient was scheduled to see his bulk tank car unloader, Dr. Tinsley this week but the appointment was canceled given the coronavirus pandemic that is currently affecting the [place]. The patient has a history of Atrial fibrillation and is anticoagulated on warfarin. His last INR was obtained by home health nursing and was 3.0. Before the patient sustained his CVA his INR typically was right around 2.5 fairly consistently per he and his 's report.The patient has been on DOAC therapy in the past with Xarelto but had persistent epitaxis and was subsequently remov ed from Xarelto and placed on warfarin. 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)) HEENT: reports: None Psych: reports: Bipolar disorder (well controlled on depakote) Musculoskeletal: reports: Chronic back pain Derm: reports: None MRSA Hx?: No Other Past Medical History: Thrombocytopenia - Past Surgical History Ortho: reports: Knee replacement (right), Rotator cuff repair Cardiovascular: reports: CABG Other past surgical history: Kidney biopsy 2015 - Substance History Use: Uses substance without health or social issues: Alcohol (used to drink wine nightly but stopped over 6 months ago) Tobacco Details: Cigarettes (former cigarette smoker) Social History - Living Situation Living arrangement: At home Living Situation: With spouse/s.o. Support System: The patient presently resides at home with his spouse, Ratna of 25 years. The patient has 1 son, Prakash and 2 stepdaughters with his Ratna. 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 The patient grew up [place] [facility] and relocated to [place]. He and his have a dog in the home. The previously had a larger home which they had rented out so that they could travel player. They traveled for several years before the patient's health started to decline further. They then moved into a trailer in [place] and have opted to sell their larger home so they would have more funds directed to the patient's overall care. They have 2 caregivers (a retired nurse and her daughter) who come into the home 18 hours a week. They have local support from their friends as well as being members of the [email or web address] club. The patient has a living will and his healthcare power of securities attorney is listed as his Ratna. However, at this time they do not have the paperwork available. Family History - Family History Family History: Mother: , Father: Family History Comment/Other: Father had lung cancer Medications/Allergies - Medications Home Medications: Ambulatory Orders Medication Instructions Recorded Confirmed Divalproex Sodium 1,500 mg PO QPM 07/31/19 08/22/19 Levothyroxine Sodium [Synthroid] 50 mcg PO DAILY 07/31/19 08/22/19 Tamsulosin [Flomax] 0.4 mg PO DAILY 07/31/19 08/22/19 Carbidopa/Levodopa 25/100 [Sinemet 1 each PO TID 08/22/19 08/22/19 25 mg/100 mg] Latanoprost 0.005% Ophth Drops 1 drops EACHEYE QPM 08/22/19 08/22/19 [Xalatan Ophth Drops] Ascorbic Acid [Vitamin C] 1,000 mg PO DAILY 09/30/19 09/30/19 Atorvastatin Calcium 20 mg PO DAILY 09/30/19 09/30/19 Cholecalciferol (Vitamin D3) 2,000 unit PO DAILY 09/30/19 09/30/19 [Vitamin D3] Levothyroxine Sodium 50 mcg PO DAILY 09/30/19 09/30/19 Tamsulosin [Flomax] 0.4 mg PO QPM 09/30/19 09/30/19 Warfarin [Coumadin] 2.5 mg PO .TUESFRI 09/30/19 09/30/19 Warfarin [Coumadin] 4 mg PO .MONWEFRISATSALDA 09/30/19 09/30/19 - Allergies Allergies/Adverse Reactions: Allergies Allergy/AdvReac Type Severity Reaction Status Date / Time No Known Drug Allergies Allergy Verified 08/22/19 15:00 Review of Systems - Constitutional Constitutional: reports: Fatigue. denies: Fever, Chills, Poor appetite - Eyes Eyes: denies: Irritation - Ears, Nose & Throat Ears, Nose & Throat: reports: Hearing loss, Hearing aids - Cardiovascular Cardiovascular: denies: Palpitations, Chest pain - Respiratory Respiratory: denies: Cough, Wheezing - Gastrointestinal Gastrointestinal: reports: Good appetite, Other (can have fluculations in bowel movements between constipation and diarrhea based on foods consumed as well as intermittent incontinence as well). denies: Abdominal pain, Abdominal distention, Change in bowel habits, Nausea, Vomiting - Genitourinary Genitourinary: reports: Frequency, Incontinence (interittent). denies: Dysuria, Hematuria - Musculoskeletal Musculoskeletal: reports: Muscle weakness, Assistive devices. denies: Joint swelling - Integumentary Integumentary: reports: Other (spouse reports intermittent discoloration to bilateral feet when in depedent position intermittently). denies: Rash - Neurological Neurological: reports: General weakness. denies: Headache - Psychiatric Psychiatric: reports: Other (Bipolar disorder) - Endocrine Endocrine: reports: Other (Diabetes Insipidus) - Hematologic/Lymphatic Hematologic/Lymphatic: reports: Bruising (bruises easily), Recurrent infections (Two recent UTIs), Other (Thombocytopenia) - All Other Systems All Other Systems: reports: Reviewed and negative Physical Exam - Vital Signs Temperature: 36.2 C Pulse Rate: 63 O2 Saturation: 96 (on RA at rest) Blood Pressure: 116/70 (left wrist cuff) - Physical Exam General Appearance: positive: No acute distress, Alert, Other (OOB in wheelchair, well groomed, tall gentleman) Eyes Bilateral: positive: Normal inspection ENT: positive: No signs of dehydration, Other (hearing aids in place) Neck: positive: Trachea midline Cardiovascular: positive: Regular rate & rhythm, No murmur, No gallop Respiratory: positive: No respiratory distress, Breath sounds nml. negative: Wheezes, Rales, Rhonchi Abdomen: positive: Non-tender, Soft, Nml bowel sounds. negative: Guarding, Distended Skin: positive: Other (visible skin warm, dry and intact) Extremities: positive: Pedal edema (trace pitting pedal edema to lower shins bilaterally with compression stockings in place) Neurologic/Psychiatric: positive: Oriented x3, Weakness (decreased legal process specialist stregnth in left hand vs right hand during evaluation), Flat affect, Other (+memory to personal details and history intact; clear speech that was slow paced; +bradykinesia) Palliative Care - POLST Patient has POLST: Yes POLST Status: DNR, Comfort Measures Pain: No pain Tiredness/Fatigue: Mild (1-3) Drowsiness/Sedation: Mild (1-3) (occurs greatest in the evenings including weakness) Nausea: None Anorexia: None Dyspnea: None Depression: None Anxiety: None Feelings of wellbeing/Perceived Quality of Life: Fair Sleep: Sleeps well Constipation: Managed, Intermittent constipation Performance Status: The patient is status post 2 CVAs in 2019. Prior to his first CVA in July 2019 he was managing with a walker. He is no longer independent. He cannot stand without assistance. His has obtained and uses a sit to stand and she also has a Elvia lift within the home. When in bed the patient has a trapeze that he uses to reposition. He is mainly confined to a wheelchair. He has intermittent incontinence to bowel and bladder. No history of skin breakdown. - Palliative Care Discussion: Prior to the patient's initial CVA in July 2019 he had been doing quite well and his renal function has remained stable over the last year and he was completing the required work-up for pending kidney transplant with Dr. Hernando stevens. Since his CVA the patient has experienced increased debility. His , who was a summer school coordinator, has always been quite practical and her approach. She is wanting that practicality in regards to caring for her . She has obtained the necessary DME equipment to care for the patient within their home including a Elvia lift, sit to stand, lift chair, electric bed, and a wheelchair. The patient's is constantly looking for new ways to improve overall care. Since the patient has required more care in regards to his ADLs both he and his report that they are closer now in their marriage and they ever were before. They see themselves as a team and are working together to manage through their daily life. The patient's spouse, Rufus, reports that she is overall happy and is able to have moments of reprieve during her days with t he help of their private caregivers. On initial conversation, patient is still optimistic that he will have a kidney transplant but this is unclear given he has not seen his bulk tank car unloader since his increased debility from his 2 CVAs. Upon exploring the need for potential dialysis whether that be hemodialysis or peritoneal dialysis, the patient is reluctant regarding hemodialysis. He and his are uncertain in regards to the use of peritoneal dialysis. Presently they do not have any known contacts who have been on dialysis in the past. POLST in the home, but not on the fridge or above the bed. Reviewed with the patient and his , Rufus today. The POLST was performed in August 2019 while the patient was septic between the provider and this spouse. Upon review today the patient and his expressed no desire For any changes. He wishes to be a DNR, with comfort measures, antibiotic use for symptom management, and was quite adamant on no medically assisted nutrition by tube. Both the patient and his spouse have cared for individuals on hospice services and are familiar with the services that hospice offers. Began exploring patient's vulnerable state given his multiple comorbidities in light of the real virus pandemic. At this time the patient does not wish for supportive respiratory measures such as mechanical intubation and would be open to hospice services at his home. 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 Patient is presently being followed by home health services with nursing for PT/INR monitoring as well as PT/OT for strengthening and fall precautions. Exploration of advanced care planning and end-of-life goals begun today. Palliative care to continue to provide support and symptom management, anticipatory guidance, and building report for advance care planning. Recommendations/Counseling Done: 1. CVA with impaired mobility. Patient is status post 2 CVAs in 2019. Resolved left sided weakness. MRI noted right real radiata infarct. The carotid u ltrasounds performed were unremarkable as well as a transthoracic echo with bubbles that did not show any intracardiac clots . His ejection fraction on his echo was 62%. His CVA was likely due to secondary to small vessel disease. Chronic/Progressive. Supportive care. Continue secondary preventative measures for stroke in optimizing BP control and statin therapy.Continue with home health PT and OT services for strengthening as well as review of safe DME use within the home. Fall precautions. 2. Atrial fibrillation. Patient is not on rate control. He had bleeding with DOAC xalterato. He is on anticoagulation with warfarin. Last INR 3.0. Were reviewed with and patient regarding importance of maintaining consistency in oral intake for stabilization of INR levels with warfarin. Reviewed foods high in vitamin K. Home health nursing to continue to monitor PT/INR levels at home. 3. History of UTIs. Patient has a history of sepsis due to UTI which grew E.coli during hospitalization in 08/2019. Potential contributing factor is the use of a condom catheter overnight with urinary stasis and the condom catheter. Discussed with patient and spouse today consideration of cranberry supplementation or d-mannose supplementation but wish to review potential interactions with warfarin dosing before proceeding. Continue to maintain appropriate hygiene care. Continue turn encourage adequate fluid intake. 4 Parkinson's disease. Chronic. Progressive. Fall precautions. Continue carbidopa/levodopa as prescribed by neurologist. 5. 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 Patient has been followed by bulk tank car unloader Dr. Tinsley at [facility]. He has been pending a work-up for kidney transplant. Given his recent decline in his overall health and mobility it is unclear if he would remain a Candidate for a Kidney Transplant. At This Time, the Patient Does Not Have a Follow-Up Appointment with His Power Distribution Engineer. Begun exploring the patient's views regarding hemodialysis if this were to be needed in the future. 6. Advanced care planning.POLST reviewed today with patient and spouse to remain DNAR with comfort measures. Please see pallaitive care discussion for further details. Palliative care to continue to build rapport and explore the patient's goals of care. Requested for copies for living will and health care power of securities attorney paperwork at next visit. Time Spent: Total time spent 100 minutes with greater than 50% of this spent in counseling and coordination of care with patient and spouse; review of palliative care philosophy; advance care planning; examination of patient; review of atrial fibrillation and diet; review symptom management and anticipatory guidance. disclaimer: The chart note was formulated using voice recognition technology and unfortunately sound alike errors may occur.
== END 2019-09-29 11:01 | disposition home or self-care (01) ==
LOC: PC 11:00
PROVIDERS: ATTEND Nurse Practitioner Family
DX: Z51.5 Encounter for palliative care (principal); I69.398 Other sequelae of cerebral infarction; M62.81 Muscle weakness (generalized); G20 Parkinson's disease; I48.91 Unspecified atrial fibrillation; E23.2 Diabetes insipidus; N18.4 Chronic kidney disease, stage 4 (severe); N12 Tubulo-interstitial nephritis, not specified as acute or chronic; K58.2 Mixed irritable bowel syndrome; Z79.01 Long term (current) use of anticoagulants; Z79.899 Other long term (current) drug therapy; Z74.09 Other reduced mobility; Z87.440 Personal history of urinary (tract) infections; Z87.891 Personal history of nicotine dependence; Z66 Do not resuscitate; Z87.898 Personal history of other specified conditions
CPT/HCPCS: 99345

== ENCOUNTER 2019-10-03 13:00 | Outpatient (CLI) | payer MEDICARE, BC ==
[2019-10-03 14:19] LABS: BILIRUBIN,URINE NEGATIVE (NEGATIVE); GLUCOSE, URINE (UA) NEGATIVE (NEGATIVE); KETONES,URINE (UA) NEGATIVE (NEGATIVE); LEUKOCYTE ESTERASE, URINE LARGE (NEGATIVE); NITRITE,URINE POSITIVE (NEGATIVE); OCCULT BLOOD,URINE TRACE-INTA (NEGATIVE); PROTEIN,URINE TRACE mg/dL (NEGATIVE); UROBILINOGEN,URINE 0.2 (NORMAL) E.U./dL (NORMAL)
[2019-10-03 14:28] LABS: BACTERIA,URINE Few /HPF (None Seen); CLARITY,URINE CLOUDY (CLEAR); RBC,URINE 0-5 /HPF (0-5); SQUAMOUS EPITHELIAL CELL,UR RARE Squamous (<= Few)
== END 2019-10-03 23:59 | disposition home or self-care (01) ==
LOC: LAB.R 13:00
PROVIDERS: ATTEND Internal Medicine
DX: E23.2 Diabetes insipidus (principal); I12.9 Hypertensive chronic kidney disease with stage 1 through stage 4 chronic kidney disease, or unspecified chronic kidney disease; N18.4 Chronic kidney disease, stage 4 (severe); R32 Unspecified urinary incontinence
CPT/HCPCS: 81001; 87086; 87181

== ENCOUNTER 2019-10-25 08:00 | Outpatient (CLI) | payer MEDICARE, BC ==
[2019-10-25 13:33] LABS: BILIRUBIN,URINE NEGATIVE (NEGATIVE); GLUCOSE, URINE (UA) NEGATIVE (NEGATIVE); KETONES,URINE (UA) NEGATIVE (NEGATIVE); LEUKOCYTE ESTERASE, URINE SMALL (NEGATIVE); NITRITE,URINE NEGATIVE (NEGATIVE); OCCULT BLOOD,URINE NEGATIVE (NEGATIVE); PH,URINE 6.5 PH (5.0-7.5); PROTEIN,URINE NEGATIVE (NEGATIVE); UROBILINOGEN,URINE 0.2 (NORMAL) E.U./dL (NORMAL)
[2019-10-25 13:51] LABS: BACTERIA,URINE Rare /HPF (None Seen); CLARITY,URINE CLEAR (CLEAR); RBC,URINE 0-5 /HPF (0-5); SQUAMOUS EPITHELIAL CELL,UR NONE SEEN (<= Few)
== END 2019-10-25 23:59 | disposition home or self-care (01) ==
LOC: LAB.R 08:00
PROVIDERS: ATTEND Internal Medicine
DX: R30.0 Dysuria (principal)
CPT/HCPCS: 81001; 87086; 87181

== ENCOUNTER 2019-11-22 12:05 | Outpatient (CLI) | payer MEDICARE, BC | END 2019-11-22 23:59 | disposition home or self-care (01) | LOC: LAB.R 12:05 | PROVIDERS: ATTEND Internal Medicine | DX: E03.9 Hypothyroidism, unspecified (principal) | CPT/HCPCS: 84443 ==

== ENCOUNTER 2020-10-01 16:25 | Outpatient (CLI) | payer MEDICARE, BC | END 2020-10-01 16:26 | disposition home or self-care (01) | LOC: COV 16:25 | PROVIDERS: ATTEND Internal Medicine Cardiovascular Disease | DX: Z01.812 Encounter for preprocedural laboratory examination (principal); I83.892 Varicose veins of left lower extremity with other complications; Z20.822 Contact with and (suspected) exposure to COVID-19 ==

== ENCOUNTER 2020-11-15 18:56 | Outpatient (CLI) | payer MEDICARE, BC ==
--- NOTE | 2020-11-15 21:52 | Ultrasound Report ---
PROCEDURE: Pelvic Limited or F/U INDICATIONS: MASS/PAIN IN LLQ, LT GROIN TECHNIQUE: Real-time transabdominal scanning was performed of the pelvic organs, with image documentation. COMPARISON: None. FINDINGS: Directed ultrasound of the left hemipelvis anteriorly was performed. In the area of clinical interest, there is an echogenic focus measuring roughly 50 mm, suggestive of a fat-containing hernia. IMPRESSION: Findings suggestive of fat containing left anterior pelvic hernia. Confirmation with IV and oral contrast-enhanced CT of the abdomen and pelvis is recommended. Reviewed by: Thad Dowell MD on 11/15/2020 9:50 PM PDT Approved by: Thad Dowell MD on 11/15/2020 9:50 PM PDT Station ID: [id number]
== END 2020-11-15 18:57 | disposition home or self-care (01) ==
LOC: DI 18:56
PROVIDERS: ATTEND Physician Assistant
DX: R93.5 Abnormal findings on diagnostic imaging of other abdominal regions, including retroperitoneum (principal)

== ENCOUNTER 2020-11-26 12:12 | Outpatient (CLI) | payer MEDICARE, BC ==
[2020-11-26] MEDS ORDERED: IOPAMIDOL-300 50 ML VIAL ONE ×2 (12:55→12:56)
[2020-11-26] MEDS ORDERED: IOVERSOL 320 100 ML VIAL IVP ONE (12:56)
[2020-11-26 13:59] LABS: CREATININE 2.7 mg/dL (0.6-1.2)
--- NOTE | 2020-11-26 17:05 | CT Report ---
PROCEDURE: Abdomen/Pelvis WO INDICATIONS: ABD Hernia TECHNIQUE: Noncontrast 5 mm thick sections acquired from the diaphragms to the symphysis. 5 mm coronal and sagi ttal reformats were then performed. For radiation dose reduction, the following was used: automated exposure control, adjustment of mA and/or kV according to patient size. COMPARISON: None. FINDINGS: ABDOMEN: Lung bases: Scattered subsegmental scarring/atelectasis. No acute consolidation. Heart: Mildly enlarged. Coronary artery calcifications are present, mild. Liver: Normal. Gallbladder: Numerous sub-5 mm gallstones. No gallbladder wall thickening or pericholecystic inflamma tion seen Bile ducts: Normal. Pancreas: Normal. Spleen: Normal. Adrenals: Normal. Kidneys and ureters: Bilateral renal cortical atrophy and scarring. Numerous presumed exophytic and c ortical cysts. Scattered dystrophic calcifications are present bilaterally. No evidence of urinary ob struction. The ureters appear decompressed. Stomach and duodenum: Normal. Bowel: Normal appearance of the appendix. No evidence of bowel obstruction. There is moderate stool. Colonic diverticulosis incidentally noted without evidence of acute inflammation. Other: No free fluid or air. There is bilateral flank subcutaneous edema Abdominal nodes: Normal. Aorta: Normal. Scattered vascular calcifications incidentally noted. IVC: Normal. Ventral wall: Normal. No ventral hernia identified. PELVIS: Bladder: Normal. Pelvic nodes: Normal. Inguinal regions: No hernia. Bones: No vertebral body compression fracture. No suspicious bone lesion. Heterotopic ossification ad jacent to the ischial tuberosities bilaterally, in keeping with chronic tendinopathy and/or muscle in jury. IMPRESSION: No ventral hernia identified. Incidental cholelithiasis Numerous presumed bilateral renal cysts, technically indeterminate in the absence of IV contrast Additional chronic and incidental findings as above. Mild cardiomegaly Coronary atherosclerosis Reviewed by: Markie Nunez MD on 11/26/2020 5:03 PM PDT Approved by: Markie Nunez MD on 11/26/2020 5:03 PM PDT Station ID: [id number]
== END 2020-11-26 12:13 | disposition home or self-care (01) ==
LOC: LAB 12:12
PROVIDERS: ATTEND Physician Assistant
DX: Z13.0 Encounter for screening for diseases of the blood and blood-forming organs and certain disorders involving the immune mechanism (principal); I51.7 Cardiomegaly; I25.10 Atherosclerotic heart disease of native coronary artery without angina pectoris
CPT/HCPCS: 36415; 82565

== ENCOUNTER 2020-12-30 13:14 | Outpatient (CLI) | payer MEDICARE, BC | END 2020-12-30 13:15 | disposition EMS.NT | LOC: EMS 13:14 | DX: Z03.89 Encounter for observation for other suspected diseases and conditions ruled out (principal) ==

== ENCOUNTER 2021-01-27 15:13 | Outpatient (CLI) | payer MEDICARE, BC ==
--- NOTE | 2021-01-27 16:24 | XRAY Report ---
PROCEDURE: Foot 3 View LT INDICATIONS: L FOOT PX TECHNIQUE: 3 views of the foot were acquired. COMPARISON: None FINDINGS: Bones: No fractures or dislocations. No suspicious bony lesions. Scattered IP and midfoot degenera tive changes are present. Soft tissues: No tibiotalar joint effusion. Achilles tendon appears normal. IMPRESSION: Scattered IP and midfoot arthritic changes. Reviewed by: Shadia Ladd MD on 01/27/2021 4:23 PM PDT Approved by: Shadia Ladd MD on 01/27/2021 4:23 PM PDT Station ID: [id number]
--- NOTE | 2021-01-27 16:24 | XRAY Report ---
PROCEDURE: Ankle 3 View LT INDICATIONS: L ANKLE PX TECHNIQUE: 3 views of the ankle were acquired. COMPARISON: None FINDINGS: Bones: No fractures or dislocations. Ankle mortise is normally aligned. No suspicious bony lesions . Soft tissues: Mild ankle edema. Achilles tendon appears normal. IMPRESSION: No visualized acute fracture or dislocation. However, occult injury cannot be excluded. Recommend short interval imaging follow-up in 7-10 days as clinically indicated for additional evalua tion. Reviewed by: Shadia Ladd MD on 01/27/2021 4:22 PM PDT Approved by: Shadia Ladd MD on 01/27/2021 4:22 PM PDT Station ID: [id number]
== END 2021-01-27 23:59 | disposition home or self-care (01) ==
LOC: DI.N 15:13
PROVIDERS: ATTEND Physician Assistant Medical
DX: M19.072 Primary osteoarthritis, left ankle and foot (principal)

== ENCOUNTER 2021-03-12 11:19 | Outpatient (CLI) | payer MEDICARE, BC | END 2021-03-12 11:20 | disposition EMS.NT | LOC: EMS 11:19 | DX: R55 Syncope and collapse (principal) ==

== ENCOUNTER 2021-03-14 12:24 | Outpatient (CLI) | payer MEDICARE, BC ==
[2021-03-14 13:21] LABS: CALCIUM 8.7 mg/dL (8.5-10.3); CREATININE 3.3 mg/dL (0.6-1.2)
[2021-03-14 14:01] LABS: INR > 10.0 (0.8-1.2); PT - PROTHROMBIN TIME > 120.0 secs (9.9-12.6)
== END 2021-03-14 12:25 | disposition home or self-care (01) ==
LOC: LAB.R 12:24
PROVIDERS: ATTEND Internal Medicine
DX: G93.41 Metabolic encephalopathy (principal); I48.91 Unspecified atrial fibrillation
CPT/HCPCS: 80048; 85610

== ENCOUNTER 2021-03-20 15:44 | Outpatient (CLI) | payer MEDICARE, BC | END 2021-03-20 15:45 | disposition critical access hospital (66) | LOC: EMS 15:44 | DX: R79.1 Abnormal coagulation profile (principal); Z79.01 Long term (current) use of anticoagulants | CPT/HCPCS: A0425; A0429 ==

== ENCOUNTER 2021-03-20 16:23 | Emergency (ER) | payer MEDICARE, BC ==
[2021-03-20] MEDS ORDERED: CHERRY SYRUP 10 ML UDC PO ONE (16:27)
[2021-03-20] MEDS ORDERED: PHYTONADIONE 10 MG/ML AMP PO ONE (16:27)
--- NOTE | 2021-03-20 16:29 | ED Physician Documentation ---
History of Present Illness - Stated complaint Stated Complaint: HIGH INR - History obtained from History obtained from: Patient, EMS - Additonal information Additional information: 75-year-old gentleman with history of atrial fibrillation and stroke on warfarin for same had outpatient INR drawn 2 days ago and it was greater than 15. He denies dark or tarry stools. He is not sure why his INR went too high. Does not know of any recent changes in diet or antibiotics. 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)) : Other (use of condom catheter overnight due to frequency 2/2 DI; 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)) HEENT: None Psych: Bipolar disorder (well controlled on depakote) Musculoskeletal: Chronic back pain Derm: None - Past Surgical History Past Surgical History: Yes Ortho: Knee replacement (right), Rotator cuff repair Cardiovascular: CABG - Present Medications Home Medications: Ambulatory Orders Medication Instructions Recorded Confirmed Divalproex Sodium 1,500 mg PO QPM 07/31/19 08/22/19 Levothyroxine Sodium [Synthroid] 50 mcg PO DAILY 07/31/19 08/22/19 Tamsulosin [Flomax] 0.4 mg PO DAILY 07/31/19 08/22/19 Carbidopa/Levodopa 25/100 [Sinemet 1 each PO TID 08/22/19 08/22/19 25 mg/100 mg] Latanoprost 0.005% Ophth Drops 1 drops EACHEYE QPM 08/22/19 08/22/19 [Xalatan Ophth Drops] Ascorbic Acid [Vitamin C] 1,000 mg PO DAILY 09/30/19 09/30/19 Atorvastatin Calcium 20 mg PO DAILY 09/30/19 09/30/19 Cholecalciferol (Vitamin D3) 2,000 unit PO DAILY 03/21/20 03/21/20 [Vitamin D3] Levothyroxine Sodium 50 mcg PO DAILY 09/30/19 09/30/19 Tamsulosin [Flomax] 0.4 mg PO QPM 09/30/19 09/30/19 Warfarin [Coumadin] 2.5 mg PO .TUESFRI 09/30/19 09/30/19 Warfarin [Coumadin] 4 mg PO .MONWEFRISATSUN 09/30/19 09/30/19 - Allergies Allergies/Adverse Reactions: Allergies Allergy/AdvReac Type Severity Reaction Status Date / Time No Known Drug Allergies Allergy Verified 03/20/21 16:47 - Social History Does the pt smoke?: No Smoking Status: Never smoker Does the pt drink ETOH?: Yes Does the pt have substance abuse?: No - Immunizations Immunizations are current?: Yes - POLST Patient has POLST: Yes POLST Status: DNR PD ED PE NORMAL - Vitals Vital signs reviewed: Yes - General General: No acute distress, Well developed/nourished - Abdomen Abdomen: Soft, Non tender - Psych Psych: Normal mood, Normal affect Results - Vitals Vitals: Vital Signs - 24 hr 03/20/21 16:41 Temperature 35.9 C L Heart Rate 68 Respiratory 18 Rate Blood Pressure 132/70 H O2 Saturation 97 Oxygen O2 Source Room air - Labs Labs: Laboratory Tests 03/20/21 03/20/21 16:33 16:33 Hgb 12.6 L Hct 38.5 L PT 72.9 H INR 6.6 H* Departure - Departure Disposition: 01 Home, Self Care Clinical Impression: Supratherapeutic INR, Atrial fibrillation Condition: Good Record reviewed to determine appropriate education?: Yes Comments: You were seen today for elevated INR. Received a dose of vitamin K. Continue to track your INR levels closely and do not restart your warfarin until it advised it is safe to do so. Return for new or worsening symptoms.
[2021-03-20 16:40] LABS: HCT - HEMATOCRIT 38.5 % (42.0-52.0); HGB - HEMOGLOBIN 12.6 g/dL (14.0-18.0)
[2021-03-20 16:46] LABS: PT - PROTHROMBIN TIME 72.9 secs (9.9-12.6)
[2021-03-20 16:47] VITALS: BP 132/70
[2021-03-20 16:53] LABS: INR 6.6 (0.8-1.2)
== END 2021-03-20 18:21 | disposition home or self-care (01) ==
LOC: ED 16:23
DX: R79.1 Abnormal coagulation profile (principal); I48.91 Unspecified atrial fibrillation; Z79.01 Long term (current) use of anticoagulants
CPT/HCPCS: 36415; 85014; 85018; 85610; 99283; A9270

== ENCOUNTER 2021-03-20 17:54 | Outpatient (CLI) | payer MEDICARE, BC | END 2021-03-20 17:55 | disposition home or self-care (01) | LOC: EMS 17:54 | PROVIDERS: ATTEND Emergency Medicine | DX: R79.1 Abnormal coagulation profile (principal); Z74.01 Bed confinement status | CPT/HCPCS: A0425; A0428 ==

== ENCOUNTER 2021-05-01 10:53 | Outpatient (CLI) | payer MEDICARE, BC | END 2021-05-01 10:54 | disposition EMS.NT | LOC: EMS 10:53 | DX: R06.02 Shortness of breath (principal); R61 Generalized hyperhidrosis ==